=== PATIENT | female | born 1955 | race Caucasian/White ===

== ENCOUNTER 2017-03-30 14:47 | Outpatient (CLI) | payer BC, SELFPAY | END 2017-03-30 14:48 | disposition home or self-care (01) | LOC: BICRAD 14:47 | PROVIDERS: ATTEND Internal Medicine Rheumatology | DX: M25.531 Pain in right wrist (principal) ==

== ENCOUNTER 2018-08-03 15:11 | Outpatient (CLI) | payer BC ==
--- NOTE | 2018-08-03 15:33 | RAD ---
EXAM: LEFT HIP TWO VIEWS: 08/03/18 HISTORY: Bilateral hip pain for three weeks without known injury. 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 Stable nonaggressive bone lesion in the proximal f emoral subtrochanteric region, stable. IMPRESSION: Mild degenerative changes. Stable partially ossified bone lesion in the subtrochanteric region left f emur. POS: [facility]
--- NOTE | 2018-08-03 15:33 | RAD ---
RIGHT HIP 2 VIEWS: HISTORY: Bilateral hip pain for 3 weeks. FINDINGS AND IMPRESSION: Mild degenerative changes without fracture or dislocation or other acute process. POS: [facility]
== END 2018-08-03 15:12 | disposition home or self-care (01) ==
LOC: BICRAD 15:11
PROVIDERS: ATTEND Internal Medicine Rheumatology
DX: M25.551 Pain in right hip (principal); M25.552 Pain in left hip; M16.0 Bilateral primary osteoarthritis of hip; M89.9 Disorder of bone, unspecified

== ENCOUNTER 2019-03-10 13:57 | Outpatient (CLI) | payer BC ==
--- NOTE | 2019-03-10 14:44 | BD ---
EXAM: DEXA bone density examination HISTORY: Osteoporosis screening COMPARISON: None FINDINGS: L1--bone mineral density 0.851 g/sq cm; T score -1.3. Z score 0.2 L2--bone mineral density 0.857 g/sq cm; T score -1.6; Z score 0.1 L3--bone mineral density 0.794 g/sq cm; T score -2.6; Z score -0.9 L4--bone mineral density 0.898 g/sq cm; T score -1.5, Z score 0.3 Total L1-L4--bone mineral density 0.853 g/sq cm; T score -1.8, Z score -0.1 Right femoral neck--bone mineral density0.510; T score -3.1, Z score -1.6 Total proximal right femur--bone mineral density 0.621; T score -2.6, Z score -1.5 This patient has a 10 year WHO fracture risk of a major osteoporotic fracture of 17% and of a hip fra cture of 6.8%. IMPRESSION: Based on the WHO criteria, the patient's bone mineral density is consideredOsteoporotic. The patient is at high risk for fracture.
== END 2019-03-10 13:58 | disposition home or self-care (01) ==
LOC: BICMAMMO 13:57
PROVIDERS: ATTEND Internal Medicine Rheumatology
DX: M81.0 Age-related osteoporosis without current pathological fracture (principal)
CPT/HCPCS: 77080

== ENCOUNTER 2019-07-24 16:13 | Outpatient (CLI) | payer BC ==
--- NOTE | 2019-07-24 16:48 | RAD ---
Bilateral RIBS 3 views HISTORY: Injury. FINDINGS: Callus formation and periosteal reaction are associated with nondisplaced fractures involvi ng the lateral aspect of left ribs 4 and 5. No displaced rib fracture evident. No pneumothorax. Prominent calcification within the aorta. IMPRESSION : Healing left lateral fourth and fifth rib fractures. Atherosclerosis.
--- NOTE | 2019-07-24 17:53 | RAD ---
TWO VIEWS LUMBAR SPINE: Date: 07-24-2019 Provided Clinical History: Back pain. FINDINGS: Five non-rib bearing lumbar type vertebral bodies are present. There is left convexity curvature of t he lumbar spine. Sagittal lumbar alignment appears normal. Lumbar vertebral body heights appear prese rved. Partially visualized cardiac pacing device wires. Atherosclerosis. Lower lumbar spine facet art hritis. Pedicles appear intact. IMPRESSION: Scoliosis and facet degenerative change. POS: [facility]
--- NOTE | 2019-07-24 17:55 | RAD ---
THORACIC SPINE RADIOGRAPHS TWO VIEWS: Date: 07-24-2019 Provided Clinical History: Back pain. FINDINGS: Thoracic alignment appears normal. There is age indeterminate compression deformity involving T12. Th oracic vertebral body heights appear otherwise preserved. Thoracic disc degenerative changes are seen . Atherosclerosis, median sternotomy changes, and cardiac pacing device partially visualized. IMPRESSION: 1. Age indeterminate compression deformity involving T12. 2. Thoracic disc degenerative change. POS: [facility]
== END 2019-07-24 16:14 | disposition home or self-care (01) ==
LOC: SCSRAD 16:13
PROVIDERS: ATTEND Chiropractor
DX: S23.41XA Sprain of ribs, initial encounter (principal); M54.6 Pain in thoracic spine; M54.5 Low back pain; M51.34 Other intervertebral disc degeneration, thoracic region; M43.8X4 Other specified deforming dorsopathies, thoracic region; M41.9 Scoliosis, unspecified; M47.816 Spondylosis without myelopathy or radiculopathy, lumbar region; S22.42XD Multiple fractures of ribs, left side, subsequent encounter for fracture with routine healing
CPT/HCPCS: 71110; 72070; 72100

== ENCOUNTER 2019-09-01 09:42 | Outpatient (CLI) | payer BC ==
--- NOTE | 2019-09-01 13:37 | NM ---
NUCLEAR MEDICINE BONE SCAN WHOLE BODY: (Skeletal scintigraphy) DATE: 09/01/2019 HISTORY: 64-year-old female with persistent rib pain after cough in May 2019 TECHNIQUE: IV injection of technetium 99m-MDP: 31.7 mCi 3 hour delayed whole body skeletal scintigraphy in anterior and posterior views. FINDINGS: Small foci of increased uptake at far anterior aspects of left fifth and sixth ribs, posterior aspect of left upper rib, approximately sixth rib, and several foci of mildly increased uptake at the lateral aspect of left upper and mid rib cage. Numerous broad bands of increased uptake involving multiple lower thoracic and upper lumbar vertebral bodies, and L5 vertebral body. No asymmetrically increased uptake in long bones of upper and lower extremities or pelvic ring. IMPRESSION: Fractures of several left ribs, lower thoracic vertebral bodies, upper lumbar vertebral bodies, and l ower lumbar vertebral body.
== END 2019-09-01 09:43 | disposition home or self-care (01) ==
LOC: NM 09:42
PROVIDERS: ATTEND Nurse Practitioner Family
DX: S32.050A Wedge compression fracture of fifth lumbar vertebra, initial encounter for closed fracture (principal); S22.080A Wedge compression fracture of T11-T12 vertebra, initial encounter for closed fracture; S32.030A Wedge compression fracture of third lumbar vertebra, initial encounter for closed fracture; S32.010A Wedge compression fracture of first lumbar vertebra, initial encounter for closed fracture; S32.020A Wedge compression fracture of second lumbar vertebra, initial encounter for closed fracture; S22.42XA Multiple fractures of ribs, left side, initial encounter for closed fracture
CPT/HCPCS: 78306; A9503

== ENCOUNTER 2019-09-11 16:22 | Outpatient (CLI) | payer BC, OTHER ==
[2019-09-11 17:22] LABS: Mean Corpuscular HGB CONC 33.7 g/dL (32.0-36.0); Mean Corpuscular Hemoglobin 34.9 pg (27.0-31.0); Mean Platelet Volume 7.4 fL (7.4-10.4); Platelet Count 263 thou/uL (130-400); Red Blood Cell (RBC) Count 4.29 mill/uL (4.20-5.40); White Blood Cell (WBC) Count 5.4 thou/uL (4.8-10.8)
[2019-09-11 17:40] LABS: Anion Gap 14 mmol/L (10-20); BUN (Urea Nitrogen) 8 mg/dL (9.8-20.1); Calc. Creatinine Clearance 0 mL/min (70-130); Calcium 9.4 mg/dL (7.8-10.44); Carbon Dioxide 29 mmol/L (23-31); Chloride 91 mmol/L (98-107); Estimated GFR-MDRD 75; Glucose 89 mg/dL (80-115); Potassium 4.2 mmol/L (3.5-5.1); Sodium 130 mmol/L (136-145)
[2019-09-12 11:27] LABS: SARS-CoV-2 MS2 Positive; SARS-CoV-2 N Gene Negative; SARS-CoV-2 S Gene Negative; SARS-CoV-2 orf1ab Negative
--- NOTE | 2019-09-12 21:08 | EKG ---
Test Reason : Blood Pressure : / mmHG Vent. Rate : 091 BPM Atrial Rate : 091 BPM P-R Int : 138 ms QRS Dur : 100 ms QT Int : 382 ms P-R-T Axes : 101 110 082 degrees QTc Int : 469 ms Suspect arm lead reversal, interpretation assumes no reversal Normal sinus rhythm Right axis deviation Pulmonary disease pattern Incomplete right bundle branch block Abnormal ECG Confirmed by Iris KEITH ([id number]) on 09/12/2019 9:07:34 PM Referred By: GODWIN Confirmed By:Iris KEITH
== END 2019-09-11 16:23 | disposition home or self-care (01) ==
LOC: LABBT 16:22
PROVIDERS: ATTEND Anesthesiology Pain Medicine
DX: Z01.818 Encounter for other preprocedural examination (principal); Z11.59 Encounter for screening for other viral diseases; S32.050A Wedge compression fracture of fifth lumbar vertebra, initial encounter for closed fracture
CPT/HCPCS: 80048; 85027; 87635; 93005; 93010; U0003

== ENCOUNTER 2019-09-13 10:18 | Day surgery (SDC) | payer BC ==
[2019-09-11 16:48] VITALS: BMI 21.9
[2019-09-13] MEDS ORDERED: CEFAZOLIN 1 GM VIAL ONE (11:05)
[2019-09-13] MEDS ORDERED: Sodium Chloride 0.9% 100 ML ONE (11:05)
[2019-09-13] MEDS ORDERED: Lidocaine 1% w/Epinephrine 1:100K 20 ML VIAL ONE (12:12)
[2019-09-13] MEDS ORDERED: Bupivacaine PF 0.5% 30 ML VIAL ONE (12:12)
[2019-09-13] MEDS ORDERED: Midazolam HCl 2 mg/2 ml Vial ONE (12:19)
[2019-09-13] MEDS ORDERED: Fentanyl 100 MCG/2 ML VIAL ONE ×2 (12:19→14:08)
[2019-09-13] MEDS ORDERED: Ketamine 50 MG/ML (10ML VIAL) ONE (12:19)
[2019-09-13] MEDS ORDERED: Propofol 500 MG/50 ML VIAL ONE (12:19)
[2019-09-13] MEDS ORDERED: Iopamidol 20 ML ONE (12:49)
--- NOTE | 2019-09-13 14:18 | RAD ---
LUMBAR SPINE: 09/13/19 Total of 20 fluoroscopic images are presented from the OR. INDICATIONS: L5 kyphoplasty. FINDINGS/IMPRESSION: The fluoroscopic images obtained in the OR during procedure reveals instrumentation at the L5 vertebr a. Radiopaque material is injected which appears to extend outside the vertebral body. POS: [facility]
[2019-09-13] MEDS ORDERED: Morphine 2 MG/ML SYRINGE ONE (15:54)
[2019-09-13] MEDS ORDERED: Ondansetron PF 4 MG/2 ML Vial ONE (16:23)
--- NOTE | 2019-09-13 22:00 | OP ---
DATE OF PROCEDURE: 09/13/2019 PREOPERATIVE DIAGNOSIS: Wedge compression fracture, delayed healing, L5. POSTOPERATIVE DIAGNOSIS: Wedge compression fracture, delayed healing, L5. PROCEDURE: Kyphoplasty at L5. ANESTHESIA: TIVA. COMPLICATIONS: None. BLOOD LOSS: Less than 20 mL. DESCRIPTION OF PROCEDURE: Risks and benefits were discussed. Informed consent was obtained. She was taken to the OR, prepped and draped in standard fashion. A 1% lidocaine with 0.5% Marcaine with epinephrine was used for skin and subcutaneous anesthesia. The left pedicle was identified under fluoroscopic guidance. An 11-gauge trocar needle was advanced easily into the left pedicle using AP, lateral, and oblique views to ensure proper placement. The right pedicle was very poorly visualized and most importantly, after multiple attempts to image the medial wall of the right pedicle that was not successful. Therefore, the procedure was changed to unipedicular approach. A curved needle was then placed through this single pedicle to cross the midline and also to make the catheter placement for the curved balloon. The sheath was withdrawn. Curved balloon was placed and inflated. The curved needle was then replaced and cement was mixed in the standard fashion and injected. At 1 mL of cement injected, there was spread of cement at the inferior endplate anteriorly. The needle was withdrawn slightly and further injection revealed a total of 3 mL injected. At this point, contrast was noted approaching the posterior wall of vertebra and bilateral spread especially across the inferior and superior endplates and the procedure was terminated. There were no complications. She tolerated it well and was taken to the recovery room in good condition. Job ID: [id number]
== END 2019-09-13 16:45 | disposition home or self-care (01) ==
LOC: SDC 10:18
PROVIDERS: ATTEND Anesthesiology Pain Medicine
PROC: 0QB03ZX Excision of Lumbar Vertebra, Percutaneous Approach, Diagnostic (ICD-10-PCS; principal; 2019-09-13)
PROC: 0QS03ZZ Reposition Lumbar Vertebra, Percutaneous Approach (ICD-10-PCS; principal; 2019-09-13)
PROC: 0QU03JZ Supplement Lumbar Vertebra with Synthetic Substitute, Percutaneous Approach (ICD-10-PCS; principal; 2019-09-13)
DX: S32.050A Wedge compression fracture of fifth lumbar vertebra, initial encounter for closed fracture (principal); S22.080A Wedge compression fracture of T11-T12 vertebra, initial encounter for closed fracture; E11.9 Type 2 diabetes mellitus without complications; M19.90 Unspecified osteoarthritis, unspecified site; I42.0 Dilated cardiomyopathy; M81.0 Age-related osteoporosis without current pathological fracture; Z79.4 Long term (current) use of insulin; Z79.899 Other long term (current) drug therapy; Z95.1 Presence of aortocoronary bypass graft; Z95.810 Presence of automatic (implantable) cardiac defibrillator; Z90.49 Acquired absence of other specified parts of digestive tract; Z98.84 Bariatric surgery status; X58.XXXA Exposure to other specified factors, initial encounter
CPT/HCPCS: 36416; 72110; 76000; 88307; 88311; J0690; J2250; J2270; J2405; J2704; J3010; J3490; Q9966; S0020

== ENCOUNTER 2019-12-28 09:25 | Outpatient (CLI) | payer BC ==
--- NOTE | 2019-12-28 14:00 | NM ---
NUCLEAR MEDICINE BONE SCAN WHOLE BODY: (Skeletal scintigraphy) DATE: 12/28/2019 HISTORY: 64-year-old female with compression fractures of thoracic spine and lumbar spine COMPARISON: 09/01/2019 TECHNIQUE: IV injection of technetium 99m-MDP: 30 mCi 3 hour delayed whole body skeletal scintigraphy in anterior and posterior views. FINDINGS: Again noted are the multiple foci of increased uptake involving several levels at the lower thoracic spine and upper lumbar spine, consistent with nonacute compression fractures. The degree of uptake has slightly decreased now compared to the previous study. Again noted is the increased uptake at the posterior elements of lower lumbar spine consistent with f acet DJD. The increased uptake involving the L5 vertebral body has diminished now. The increased uptake involving left lateral and lower anterior ribs has also decreased. Single focus of increased uptake in one of the right posterior upper ribs, has also decreased in inte nsity. There is a new prominent focus of increased uptake in the right parietal or occipital calvarium. No other new foci of increased uptake. IMPRESSION: 1) new prominent single focus of increased uptake in the right posterior skull. Recommend further antoinette luation beginning with noncontrast CT of the brain. 2) multiple osteoporotic compression fractures of lower thoracic spine and lumbar spine, with mild in terval decrease in the intensity of uptake since prior study. 3) interval decrease in intensity of uptake involving nonacute rib fractures.
== END 2019-12-28 09:26 | disposition home or self-care (01) ==
LOC: NM 09:25
PROVIDERS: ATTEND Anesthesiology Pain Medicine
DX: S22.009A Unspecified fracture of unspecified thoracic vertebra, initial encounter for closed fracture (principal); S22.39XA Fracture of one rib, unspecified side, initial encounter for closed fracture
CPT/HCPCS: 78306; A9503

== ENCOUNTER 2020-01-12 15:56 | Outpatient (CLI) | payer BC ==
--- NOTE | 2020-01-12 17:11 | CT ---
CT HEAD WITHOUT IV CONTRAST COMPARISON: Bone scan on 07/14/2019 HISTORY: Abnormal focus of uptake radiotracer seen within the left parietal bone on prior bone scan. TECHNIQUE: Axial CT imaging at 5 mm intervals from vertex through skull base without contrast FINDINGS: There is no evidence of an acute infarction, hemorrhage, mass effect, or midline shift. There is mild cerebral volume loss. The ventricular system is normal in size, shape, and position for the degree of sulcal atrophy. Mucosal thickening is seen in a few right ethmoidal air cells. Mastoid air cells are clear. Osseous structures appear intact.There is no lytic or sclerotic lesion seen within the left parietal bone to correspond to the area of intense abnormal uptake of radiotracer on the prior bone scan. Exact etiology for finding on bone scan is uncertain. There is a area of lucency seen in the midline of the frontal bone which is noted to be within the diploic space. No abnormal uptake was seen in this region on the bone scan. May represent prominent arachnoid granulation. This has a overall nonag gressive appearance. IMPRESSION: 1. No acute intracranial abnormality demonstrated. 2. No sclerotic or lytic lesion or evidence of a fracture is seen in the left parietal bone to corres pond to the abnormality seen on bone scan. Exact etiology for the area of abnormal uptake is uncertain. MRI brain versus follow-up bone scan is suggested for further evaluation given that a ale esponding abnormality is not seen on CT exam.
== END 2020-01-12 15:57 | disposition home or self-care (01) ==
LOC: BICCT 15:56
PROVIDERS: ATTEND Anesthesiology Pain Medicine
DX: M89.9 Disorder of bone, unspecified (principal)
CPT/HCPCS: 70450

== ENCOUNTER 2020-03-06 12:52 | Outpatient (CLI) | payer BC ==
[2020-03-06 13:23] LABS: Estimated GFR-MDRD - POC Greater than 90
--- NOTE | 2020-03-06 14:15 | CT ---
CTA ABDOMEN AND PELVIS WITH BILATERAL LOWER EXTREMITY RUNOFF: INDICATIONS: 65-year-old female with discoloration of the left great toe and peripheral vascular disease TECHNIQUE: Multiple CTA images were obtained of the abdomen and pelvis with bilateral lower extremity runoff uti lizing IV contrast and 3D reformatted imaging. Axial, coronal and sagittal reformatted images were constructed from the raw data. COMPARISON: Prior CT of the thoracic spine and lumbar spine dated August 25, [address] the abdomen an d pelvis with and without contrast dated July 16, 2008 FINDINGS: ABDOMEN: Lung bases: Clear Liver: Diffuse fatty liver Gallbladder: Cholelithiasis Pancreas: Normal. Adrenal glands: Slight hypertrophy of both adrenal glands. There are also small bilateral adrenal bonilla nomas that appears similar. Spleen: Normal. Kidneys and ureters: Normal. No hydronephrosis. Lymph nodes:No lymphadenopathy. Free fluid in abdomen:No free fluid is evident. PELVIS: Small and large bowel: Postsurgical change of a gastric bypass. Small and large bowel that are unopac ified reveal no definite acute abnormality Appendix:Normal Bladder: Partially decompressed Rectal and perirectal soft tissues:Normal. Reproductive structures: Not well seen. Free fluid in pelvis: No free fluid is evident. Lymphadenopathy pelvis: No lymphadenopathy is evident. Osseous structures: There is been interval mild superior endplate compression fracture of L3. Mild co mpression abnormalities of L5, L4, L2, L1, T12 and T11 are similar to the comparison examination dated August 25, 2019. There is diffuse osteopenia. There is scattered degenerative and osteoarthritic c hanges. There is vertebroplasty change at L5. There is a low-grade chondroid lesion within the proximal left femur. Soft tissues:Normal. VASCULATURE: Aorta: There is severe atherosclerotic irregularity of the abdominal aorta without evidence of stenos is, occlusion or aneurysmal formation. Celiac:Moderate narrowing involving the origin SMA:Severe narrowing involving the origin Renal arteries:The right renal artery is duplicated. The small superior right renal artery appears pa tent. The larger main right renal artery demonstrates severe narrowing along its proximal segment. The left main renal artery demonstrates moderate narrowing along its proximal segment. SLOAN:Moderate narrowing at its origin. Right common iliac artery: Moderate to severe narrowing near its origin and proximal segment. Right external iliac artery: Normal in caliber without evidence of stenosis or occlusion. Right internal iliac artery: There is moderate to severe narrowing involving the origin and proximal segment of the right internal iliac Left common iliac artery: There is complete occlusion from its origin through the level of the left e xternal iliac artery. There is reconstituted flow in the left internal iliac artery. Left external iliac artery: There is moderate to severe narrowing involving the proximal left externa l iliac artery.. Left internal iliac artery: Reconstitution of flow likely through pelvic collaterals. Is occluded at its proximal segment. Right common femoral artery: Moderate narrowing Right deep femoral artery: Normal in caliber without evidence of stenosis or occlusion. Right superficial femoral artery: Mild irregularity and narrowing. Right popliteal artery: Normal in caliber without evidence of stenosis or occlusion. Right posterior tibial artery: Normal in caliber without evidence of stenosis or occlusion. Right anterior tibial artery: Normal in caliber without evidence of stenosis or occlusion. Right peroneal artery: Normal in caliber without evidence of stenosis or occlusion. Left common femoral artery: There is moderate 50% luminal caliber narrowing Left deep femoral artery: Normal in caliber without evidence of stenosis or occlusion. Left superficial femoral artery: There is moderate atherosclerotic irregularity involving the distal left superficial femoral artery Left popliteal artery: Normal in caliber without evidence of stenosis or occlusion. Left posterior tibial artery: Normal in caliber without evidence of stenosis or occlusion. Left anterior tibial artery: Normal in caliber without evidence of stenosis or occlusion. Left peroneal artery: Normal in caliber without evidence of stenosis or occlusion. Additional findings: Small low-grade chondroid lesion seen within the proximal left femur. IMPRESSION: 1. Complete occlusion of the left common iliac artery with reconstitution of the level of the left ex ternal iliac artery. There is moderate to severe narrowing involving the proximal left external iliac artery. There is moderate 50% luminal caliber narrowing involving the left common femoral arter y. There is moderate atherosclerotic irregularity of the left superficial femoral artery distally. 2. Moderate to severe narrowing involving the origin of the right common iliac artery. There is moder ate, 50% luminal caliber narrowing, involving the right common femoral artery. 3. Severe narrowing involving the origin of the SMA. Moderate narrowing involving the origin of the c eliac. Severe narrowing involving the origin of the right main renal artery. 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 Moderate narrowing involving the proximal segmen t of the left main renal artery. Moderate narrowing involving the origin of the SLOAN. 4. New superior endplate compression fracture of L3. Stable chronic compression fractures of L5, L4, L2, L1, T12 and T11 with intervertebral plasty change at L5. 5. Fatty liver, cholelithiasis, small bilateral adrenal adenomas with mild adrenal hypertrophy and lo w-grade chondroid lesion of the proximal left femur
== END 2020-03-06 12:53 | disposition home or self-care (01) ==
LOC: BICCT 12:52
PROVIDERS: ATTEND Thoracic Surgery (Cardiothoracic Vascular Surgery)
DX: I70.213 Atherosclerosis of native arteries of extremities with intermittent claudication, bilateral legs (principal); I77.1 Stricture of artery; I70.202 Unspecified atherosclerosis of native arteries of extremities, left leg; S32.039A Unspecified fracture of third lumbar vertebra, initial encounter for closed fracture
CPT/HCPCS: 75635; 82565

== ENCOUNTER 2020-06-27 09:40 | Outpatient (CLI) | payer BC ==
[2020-06-27] MEDS ORDERED: Iopamidol 370 76% 50 ML VIAL FS ONE (13:13)
[2020-06-27] MEDS ORDERED: Iopamidol 370 76% 100 ML VIAL ONE (13:13)
== END 2020-06-27 09:41 | disposition home or self-care (01) ==
LOC: CT 09:40
PROVIDERS: ATTEND Internal Medicine Hematology & Oncology
DX: C41.0 Malignant neoplasm of bones of skull and face (principal); K80.20 Calculus of gallbladder without cholecystitis without obstruction; R59.0 Localized enlarged lymph nodes; E27.8 Other specified disorders of adrenal gland
CPT/HCPCS: 70450; 71260; 74177; Q9967

== ENCOUNTER 2020-06-28 13:15 | Inpatient (IN) | payer BC ==
[2020-07-02 09:55] VITALS: BMI 20.5
[2020-07-03 08:06] LABS: Sodium 129 mmol/L (136-145)
[2020-07-03] MEDS ORDERED: Lidocaine 0.5%/Epinephrine 1:200,000 50 ml Vial ONE (08:08)
[2020-07-03] MEDS ORDERED: Albuterol Sulfate 2.5 mg/3 ml Neb NEB SCH (08:15)
[2020-07-03] MEDS ORDERED: Albuterol Sulfate 2.5 mg/3 ml Neb ONE (08:16)
[2020-07-03] MEDS ORDERED: Ketamine 50 MG/ML (10ML VIAL) ONE (08:37)
[2020-07-03] MEDS ORDERED: Fentanyl 100 MCG/2 ML VIAL ONE (08:37)
[2020-07-03] MEDS ORDERED: Ketorolac Tromethamine 30 MG/ML VIAL ONE (09:29)
[2020-07-03] MEDS ORDERED: PROPOFOL 200 MG/20 ML VIAL ONE (09:29)
[2020-07-03] MEDS ORDERED: Lidocaine 1% PF 5 ML VIAL ONE (09:29)
[2020-07-03] MEDS ORDERED: Bacitracin Zinc Ointment 30 gm TUBE ONE (09:29)
[2020-07-03] MEDS ORDERED: Albuterol Sulfate HFA (OR ONLY) ONE (09:29)
[2020-07-03] MEDS ORDERED: Rocuronium Bromide 10 MG/ML (10ML VIAL) ONE (09:29)
[2020-07-03] MEDS ORDERED: PHENYLEPHRINE-NS 100 MCG/ML 10 ML SYRINGE ONE (09:29)
[2020-07-03] MEDS ORDERED: Ondansetron PF 4 MG/2 ML Vial ONE (09:29)
[2020-07-03] MEDS ORDERED: Dexamethasone 20 MG/5 ML VIAL ONE (09:29)
[2020-07-03] MEDS ORDERED: SUGAMMADEX SODIUM 200 MG/2 ML VIAL ONE (09:34)
== END 2020-07-03 13:28 | disposition home or self-care (01) | DRG 479 ==
LOC: SURG A 07-03 07:06
PROVIDERS: ADMIT Neurological Surgery; ATTEND Neurological Surgery
PROC: 0NB Head and Facial Bones, Excision (ICD-10-PCS; principal; 2020-07-03)
DX: M89.9 Disorder of bone, unspecified (principal); E78.00 Pure hypercholesterolemia, unspecified; F32.9 Major depressive disorder, single episode, unspecified; E11.9 Type 2 diabetes mellitus without complications; M19.90 Unspecified osteoarthritis, unspecified site; I10 Essential (primary) hypertension; Z95.1 Presence of aortocoronary bypass graft; Z98.84 Bariatric surgery status; Z90.49 Acquired absence of other specified parts of digestive tract
CPT/HCPCS: 36415; 36416; 84295; 88307; 88341; 88342; 88360; 94640; J0690; J1100; J1885; J2001; J2405; J2704; J3010; J7611

== ENCOUNTER 2020-06-28 13:27 | Outpatient (CLI) | payer BC ==
[2020-06-28 16:48] LABS: Hemoglobin 14.7 g/dL (12.0-15.5); Mean Corpuscular HGB CONC 34.5 g/dL (32.0-36.0); Mean Corpuscular Hemoglobin 34.4 pg (27.0-33.0); Mean Corpuscular Volume 99.8 fl (81.6-98.3); Platelet Count 235 10x3/uL (150-450); RBC Distribution Width 12.9 % (11.5-14.5); Red Blood Cell (RBC) Count 4.27 10x6/uL (3.90-5.03); White Blood Cell (WBC) Count 4.4 10x3/uL (3.5-10.5)
[2020-06-28 17:17] LABS: Anion Gap 14 mmol/L (10-20); BUN (Urea Nitrogen) 4 mg/dL (9.8-20.1); Calc. Creatinine Clearance 0 mL/min (70-130); Calcium 9.5 mg/dL (7.8-10.44); Carbon Dioxide 30 mmol/L (23-31); Chloride 90 mmol/L (98-107); Glucose 94 mg/dL (80-115); Potassium 4.9 mmol/L (3.5-5.1); Sodium 129 mmol/L (136-145)
[2020-06-29 02:22] LABS: SARS-CoV-2 PCR by NAA Not Detected (NotDetected)
== END 2020-06-28 13:28 | disposition home or self-care (01) ==
LOC: LABBT 13:27
PROVIDERS: ATTEND Neurological Surgery
DX: Z01.818 Encounter for other preprocedural examination (principal); Z01.812 Encounter for preprocedural laboratory examination; M89.9 Disorder of bone, unspecified; Z20.822 Contact with and (suspected) exposure to COVID-19
CPT/HCPCS: 80048; 85027; 87635; 93005; 93010; U0003; U0005

== ENCOUNTER 2020-07-09 12:58 | Outpatient (CLI) | payer BC ==
[2020-07-09 14:36] LABS: #Monocytes 0.7 10x3/uL (0.0-1.1); #Neutrophils 2.7 10x3/uL (1.5-8.4); %Basophils 0.7 % (0.0-2.0); %Eosinophils 0.9 % (0.0-6.0); %Lymphocytes 20.5 % (18.0-47.0); %Monocytes 15.3 % (0.0-10.0); %Neutrophils 62.4 % (40.0-75.0); Hemoglobin 14.6 g/dL (12.0-15.5); Mean Corpuscular HGB CONC 34.8 g/dL (32.0-36.0); Mean Corpuscular Hemoglobin 34.8 pg (27.0-33.0); Mean Platelet Volume 9.5 fl (7.4-10.4); Platelet Count 251 10x3/uL (150-450); White Blood Cell (WBC) Count 4.3 10x3/uL (3.5-10.5)
[2020-07-09 14:53] LABS: ALT (SGPT) 26 U/L (8-55); AST (SGOT) 49 U/L (5-34); Alkaline Phosphatase 221 U/L (40-110); Anion Gap 13 mmol/L (10-20); BUN (Urea Nitrogen) 6 mg/dL (9.8-20.1); Calc. Creatinine Clearance 0 mL/min (70-130); Calcium 9.5 mg/dL (7.8-10.44); Carbon Dioxide 32 mmol/L (23-31); Chloride 89 mmol/L (98-107); Globulin 2.4 g/dL (2.4-3.5); Glucose 118 mg/dL (80-115); Potassium 4.6 mmol/L (3.5-5.1); Protein, Total 6.4 g/dL (5.8-8.1); Sodium 129 mmol/L (136-145)
[2020-07-10 01:44] LABS: SARS-CoV-2 PCR by NAA Not Detected (NotDetected)
== END 2020-07-09 12:59 | disposition home or self-care (01) ==
LOC: LABBT 12:58
PROVIDERS: ATTEND Surgery
DX: Z01.818 Encounter for other preprocedural examination (principal); C7A.8 Other malignant neuroendocrine tumors; Z20.822 Contact with and (suspected) exposure to COVID-19
CPT/HCPCS: 80053; 85025; 87635; 93005; 93010; U0003; U0005

== ENCOUNTER 2020-07-12 07:57 | Day surgery (SDC) | payer BC ==
[2020-07-11 08:50] VITALS: BMI 20.9
[2020-07-12] MEDS ORDERED: Famotidine/PF 20 mg/2ml Vial ONE (10:25)
[2020-07-12] MEDS ORDERED: Fentanyl 100 MCG/2 ML VIAL ONE (10:25)
[2020-07-12] MEDS ORDERED: Midazolam HCl 2 mg/2 ml Vial ONE (10:25)
[2020-07-12] MEDS ORDERED: Ketamine 50 MG/ML (10ML VIAL) ONE (10:25)
[2020-07-12] MEDS ORDERED: Bupivacaine 0.25% HCL 30 ML VIAL ONE (10:27)
[2020-07-12] MEDS ORDERED: XYLOCAINE 2%-EPI 1:100,000 20 ML VIAL ONE (10:27)
[2020-07-12] MEDS ORDERED: Ondansetron PF 4 MG/2 ML Vial ONE (10:39)
[2020-07-12] MEDS ORDERED: PROPOFOL 200 MG/20 ML VIAL ONE (10:39)
[2020-07-12] MEDS ORDERED: Glycopyrrolate 0.2 MG/ML 5 ML SYRINGE ONE (10:39)
[2020-07-12] MEDS ORDERED: Metoprolol Tartrate 5 MG/5 ML VIAL ONE (10:39)
[2020-07-12] MEDS ORDERED: hydrALAZINE 20 MG/ML VIAL SLOW IVP PRN (11:27)
[2020-07-12] MEDS ORDERED: Ondansetron HCl/PF 4 MG/2 ML Vial IVP PRN (11:27)
[2020-07-12] MEDS ORDERED: hydrALAZINE 20 MG/ML VIAL ONE (11:31)
== END 2020-07-12 14:35 | disposition home or self-care (01) ==
LOC: SDC 07:57
PROVIDERS: ATTEND Surgery
PROC: 02HV33Z Insertion of Infusion Device into Superior Vena Cava, Percutaneous Approach (ICD-10-PCS; principal; 2020-07-12)
PROC: 0JH60WZ Insertion of Totally Implantable Vascular Access Device into Chest Subcutaneous Tissue and Fascia, Open Approach (ICD-10-PCS; principal; 2020-07-12)
DX: C7A.8 Other malignant neuroendocrine tumors (principal); E11.9 Type 2 diabetes mellitus without complications; I42.0 Dilated cardiomyopathy; F17.210 Nicotine dependence, cigarettes, uncomplicated; Z79.4 Long term (current) use of insulin; Z79.899 Other long term (current) drug therapy; Z95.1 Presence of aortocoronary bypass graft; Z95.810 Presence of automatic (implantable) cardiac defibrillator
CPT/HCPCS: 71045; C1788; J0360; J0690; J1642; J2250; J2405; J2704; J3010; S0020; S0028

== ENCOUNTER 2020-07-18 11:02 | Outpatient (CLI) | payer BC | END 2020-07-18 11:03 | disposition home or self-care (01) | LOC: PET 11:02 | PROVIDERS: ATTEND Internal Medicine Hematology & Oncology | DX: C34.90 Malignant neoplasm of unspecified part of unspecified bronchus or lung (principal); C79.51 Secondary malignant neoplasm of bone | CPT/HCPCS: 78815; A9552 ==

== ENCOUNTER 2020-08-29 10:45 | Inpatient (IN) | payer BC ==
[2020-08-29] MEDS ORDERED: Fentanyl 100 MCG/2 ML VIAL ONE ×4 (11:12→15:24)
[2020-08-29] MEDS ORDERED: Ondansetron PF 4 MG/2 ML Vial ONE ×2 (11:20→15:44)
[2020-08-29] MEDS ORDERED: Dextrose 50% Abboject 50 ML SYRINGE SLOW IVP PRN (12:39)
[2020-08-29] MEDS ORDERED: hydrALAZINE 20 MG/ML VIAL SLOW IVP PRN (12:39)
[2020-08-29] MEDS ORDERED: Morphine 2 MG/ML VIAL SLOW IVP PRN (12:39)
[2020-08-29] MEDS ORDERED: Dextrose 5% in Water 1,000 ML IV PRN (12:39)
[2020-08-29] MEDS ORDERED: CEFAZOLIN 2 GM in Premix Bag 1 BAG IVPB SCH (12:45)
[2020-08-29 13:59] LABS: SARS-CoV-2 NAA Rapid Test Not Detected (NotDetected)
[2020-08-29 14:04] LABS: Hemoglobin 8.2 g/dL (12.0-16.0); Mean Corpuscular HGB CONC 34.6 g/dL (32.0-36.0); Mean Corpuscular Hemoglobin 36.5 pg (27.0-31.0); Mean Platelet Volume 7.5 fL (7.4-10.4); Platelet Count 243 thou/uL (130-400); RBC Distribution Width 15.8 % (11.5-14.5); Red Blood Cell (RBC) Count 2.26 mill/uL (4.20-5.40); White Blood Cell (WBC) Count 27.8 thou/uL (4.8-10.8)
[2020-08-29 14:19] LABS: Magnesium 1.6 mg/dL (1.6-2.6); Phosphorus 3.7 mg/dL (2.3-4.7)
[2020-08-29 14:24] LABS: ALT (SGPT) 15 U/L (8-55); AST (SGOT) 30 U/L (5-34); Albumin 3.4 g/dL (3.4-4.8); Alkaline Phosphatase 161 U/L (40-110); Anion Gap 14 mmol/L (10-20); Anisocytosis SLIGHT = 6-15 cells (100X) (0-5/hpf); BUN (Urea Nitrogen) 8 mg/dL (9.8-20.1); Band 42 % (5-11); Bilirubin, Total 1.1 mg/dL (0.2-1.2); Calc. Creatinine Clearance 0 mL/min (70-130); Calcium 8.8 mg/dL (7.8-10.44); Carbon Dioxide 25 mmol/L (23-31); Chloride 82 mmol/L (98-107); Globulin 2.7 g/dL (2.4-3.5); Glucose 138 mg/dL (80-115); Lymphocytes 2 % (21-51); MDiff Complete? YES; Macrocytosis SLIGHT = 6-15 cells (100X) (0-5/hpf); Monocytes 5 % (0-10); Neutrophil 51 % (42-75); Potassium 5.1 mmol/L (3.5-5.1); Protein, Total 6.1 g/dL (5.8-8.1); Reflex for Review?? YES; Sodium 116 mmol/L (136-145)
[2020-08-29] MEDS ORDERED: Sodium Chloride 0.9% 10 ML ONE ×2 (15:05→15:43)
[2020-08-29] MEDS ORDERED: Sodium Chloride 0.9% 20 ML ONE (15:26)
[2020-08-29] MEDS ORDERED: Bupivacaine HCl 0.5%/Epinephrine 1:200,000/PF 30 ml Vial ONE (15:40)
[2020-08-29] MEDS ORDERED: Carvedilol 6.25 MG TAB ONE (16:41)
[2020-08-29] MEDS ORDERED: Lisinopril 10 MG TAB ONE (16:42)
[2020-08-29] MEDS ORDERED: Lisinopril 20 MG TAB PO SCH (16:45)
[2020-08-29] MEDS ORDERED: Carvedilol 6.25 MG TAB PO SCH (17:00)
[2020-08-29] MEDS: traMADol HCl 50 MG TAB PO SCH ×3 (18:25→23:37)
[2020-08-29] MEDS: Sodium Chloride 0.9% 1,000 ML IV SCH ×3 (18:25→23:31)
[2020-08-29] MEDS: Acetaminophen 325 MG TAB PO SCH ×2 (18:49→23:32)
[2020-08-29] MEDS: Ketorolac Tromethamine 30 MG/ML VIAL IVP SCH ×2 (18:49→23:33)
[2020-08-29] MEDS: Ferrous Sulfate 325 MG TAB PO SCH (18:50)
[2020-08-29] MEDS: Famotidine 20 MG TAB PO SCH (20:30)
[2020-08-29] MEDS: Ascorbic Acid 500 mg Chewable Tablet PO SCH (20:30)
[2020-08-29] MEDS: Senokot S 8.6-50 MG TAB PO SCH (20:30)
[2020-08-29] MEDS ORDERED: Sodium Chloride 1 GM TAB PO SCH (21:00)
[2020-08-29 22:16] LABS: Anion Gap 10 mmol/L (10-20); BUN (Urea Nitrogen) 10 mg/dL (9.8-20.1); Calc. Creatinine Clearance 0 mL/min (70-130); Calcium 8.4 mg/dL (7.8-10.44); Carbon Dioxide 29 mmol/L (23-31); Chloride 82 mmol/L (98-107); Glucose 166 mg/dL (80-115); Potassium 4.8 mmol/L (3.5-5.1)
[2020-08-29 22:20] LABS: Sodium 116 mmol/L (136-145)
[2020-08-29] MEDS ORDERED: Sodium Chloride 0.9% 500 ML IV SCH (23:00)
[2020-08-29] MEDS ORDERED: Sodium Phosphate 30 MMOL in Sodium Chloride 0.9% 250 ML 250 ML IVPB SCH (23:15)
[2020-08-30 01:14] VITALS: BMI 22.8
[2020-08-30] MEDS: Acetaminophen 325 MG TAB PO SCH ×4 (05:12→23:50)
[2020-08-30] MEDS: Ketorolac Tromethamine 30 MG/ML VIAL IVP SCH ×4 (05:12→23:50)
[2020-08-30] MEDS: traMADol HCl 50 MG TAB PO SCH ×4 (05:13→23:51)
[2020-08-30 06:31] LABS: #Lymphocytes 0.8 thou/uL (1.20-3.40); #Monocytes 0.7 thou/uL (0.11-0.59); #Neutrophils 10.7 thou/uL (1.40-6.50); %Basophils 0.1 % (0.0-1.0); %Eosinophils 0.4 % (0.0-10.0); %Lymphocytes 6.2 % (21.0-51.0); %Monocytes 5.8 % (0.0-10.0); %Neutrophils 87.6 % (42.0-75.0); Hemoglobin 6.6 g/dL (12.0-16.0); Mean Corpuscular HGB CONC 33.7 g/dL (32.0-36.0); Mean Corpuscular Hemoglobin 36.1 pg (27.0-31.0); Mean Platelet Volume 6.9 fL (7.4-10.4); Platelet Count 174 thou/uL (130-400); RBC Distribution Width 16.1 % (11.5-14.5); Red Blood Cell (RBC) Count 1.84 mill/uL (4.20-5.40); White Blood Cell (WBC) Count 12.2 thou/uL (4.8-10.8)
[2020-08-30 06:32] LABS: INR-International Normal Ratio 1.1; PTT 30.7 sec (22.9-36.1); Prothrombin Time 14.3 sec (12.0-14.7)
[2020-08-30 06:44] LABS: Anion Gap 12 mmol/L (10-20); BUN (Urea Nitrogen) 12 mg/dL (9.8-20.1); Calc. Creatinine Clearance 78 mL/min (70-130); Carbon Dioxide 26 mmol/L (23-31); Chloride 86 mmol/L (98-107); Glucose 142 mg/dL (80-115); Magnesium 2.6 mg/dL (1.6-2.6); Phosphorus 6.8 mg/dL (2.3-4.7); Potassium 4.5 mmol/L (3.5-5.1); Sodium 119 mmol/L (136-145)
[2020-08-30] MEDS: Ferrous Sulfate 325 MG TAB PO SCH ×2 (07:18→17:26)
[2020-08-30] MEDS: Polyethylene Glycol 3350 17 GM Packet PO SCH (07:21)
[2020-08-30] MEDS: Sodium Chloride 1 GM TAB PO SCH ×2 (08:11→16:17)
[2020-08-30] MEDS: Famotidine 20 MG TAB PO SCH ×2 (08:11→20:20)
[2020-08-30] MEDS: Lisinopril 20 MG TAB PO SCH (08:12)
[2020-08-30] MEDS: Ascorbic Acid 500 mg Chewable Tablet PO SCH ×2 (08:12→20:20)
[2020-08-30] MEDS: Senokot S 8.6-50 MG TAB PO SCH ×2 (08:15→20:19)
[2020-08-30] MEDS: Sodium Chloride 0.9% 1,000 ML IV SCH (08:30)
[2020-08-30] MEDS ORDERED: Sodium Chloride 3% 500 ML IVPB SCH (09:00)
[2020-08-30] MEDS ORDERED: Carvedilol 6.25 MG TAB PO SCH (09:00)
[2020-08-30 13:26] LABS: Anion Gap 11 mmol/L (10-20); BUN (Urea Nitrogen) 11 mg/dL (9.8-20.1); Calc. Creatinine Clearance 73 mL/min (70-130); Carbon Dioxide 25 mmol/L (23-31); Chloride 88 mmol/L (98-107); Glucose 167 mg/dL (80-115); Potassium 4.7 mmol/L (3.5-5.1)
[2020-08-30 13:49] LABS: Sodium 119 mmol/L (136-145)
[2020-08-30] MEDS ORDERED: Meclizine HCl 25 MG TAB PO PRN (14:23)
[2020-08-30] MEDS ORDERED: ALPRAZolam 0.25 MG TAB PO PRN (14:23)
[2020-08-30] MEDS ORDERED: Prochlorperazine Maleate 5 MG TAB PO PRN (15:00)
[2020-08-30] MEDS ORDERED: Albuterol Sulfate 2.5 mg/3 ml Neb NEB PRN (15:01)
[2020-08-30] MEDS: Ondansetron PF 4 MG/2 ML Vial IVP PRN (16:17)
[2020-08-30 16:49] LABS: Glucose 136 mg/dL (80-115)
[2020-08-30] MEDS: Carvedilol 6.25 MG TAB PO SCH (20:21)
[2020-08-31] MEDS: Sodium Chloride 1 GM TAB PO SCH ×3 (01:18→17:39)
[2020-08-31] MEDS: Ondansetron PF 4 MG/2 ML Vial IVP PRN ×2 (01:18→18:54)
[2020-08-31 05:28] LABS: #Monocytes 0.5 thou/uL (0.11-0.59); %Basophils 0.1 % (0.0-1.0); %Eosinophils 0.3 % (0.0-10.0); %Lymphocytes 8.5 % (21.0-51.0); %Monocytes 4.3 % (0.0-10.0); %Neutrophils 86.8 % (42.0-75.0); Hemoglobin 7.1 g/dL (12.0-16.0); Mean Corpuscular Hemoglobin 36.1 pg (27.0-31.0); Mean Platelet Volume 7.3 fL (7.4-10.4); Platelet Count 169 thou/uL (130-400); RBC Distribution Width 17.4 % (11.5-14.5); Red Blood Cell (RBC) Count 1.96 mill/uL (4.20-5.40); White Blood Cell (WBC) Count 11.5 thou/uL (4.8-10.8)
[2020-08-31 05:55] LABS: Anion Gap 9 mmol/L (10-20); BUN (Urea Nitrogen) 9 mg/dL (9.8-20.1); Calc. Creatinine Clearance 81 mL/min (70-130); Calcium 7.9 mg/dL (7.8-10.44); Carbon Dioxide 26 mmol/L (23-31); Chloride 91 mmol/L (98-107); Glucose 132 mg/dL (80-115); Phosphorus 3.4 mg/dL (2.3-4.7); Potassium 4.3 mmol/L (3.5-5.1); Sodium 122 mmol/L (136-145)
[2020-08-31] MEDS: Ketorolac Tromethamine 30 MG/ML VIAL IVP SCH ×3 (05:59→17:41)
[2020-08-31] MEDS: traMADol HCl 50 MG TAB PO SCH ×3 (06:00→18:54)
[2020-08-31] MEDS: Acetaminophen 325 MG TAB PO SCH ×3 (06:00→17:40)
[2020-08-31] MEDS ORDERED: Sodium Chloride 3% 500 ML IVPB SCH (07:30)
[2020-08-31] MEDS ORDERED: Ondansetron PF 4 MG/2 ML Vial ONE ×2 (07:40→08:30)
[2020-08-31] MEDS ORDERED: Famotidine/PF 20 mg/2ml Vial ONE (08:24)
[2020-08-31] MEDS ORDERED: PHENYLEPHRINE-NS 100 MCG/ML 10 ML SYRINGE ONE (08:30)
[2020-08-31] MEDS ORDERED: Glycopyrrolate 0.2 MG/ML 5 ML SYRINGE ONE (08:30)
[2020-08-31] MEDS ORDERED: Rocuronium Bromide 10 MG/ML (10ML VIAL) ONE (08:30)
[2020-08-31] MEDS ORDERED: Albuterol Sulfate HFA (OR ONLY) ONE (08:30)
[2020-08-31] MEDS ORDERED: Metoprolol Tartrate 5 MG/5 ML VIAL ONE (08:30)
[2020-08-31] MEDS ORDERED: ePHEDrine Sulfate 50 MG/10 ML VIAL ONE (08:30)
[2020-08-31] MEDS ORDERED: Midazolam HCl 2 mg/2 ml Vial ONE (08:33)
[2020-08-31] MEDS ORDERED: Phenylephrine 10 MG/ML VIAL ONE (08:37)
[2020-08-31] MEDS ORDERED: Ketamine 50 MG/ML (10ML VIAL) ONE (08:37)
[2020-08-31] MEDS ORDERED: Fentanyl 100 MCG/2 ML VIAL ONE ×2 (08:37→10:02)
[2020-08-31] MEDS ORDERED: HYDROmorphone 2 MG/ML VIAL SLOW IVP PRN (10:12)
[2020-08-31] MEDS ORDERED: Promethazine HCl 25 MG/ML VIAL SLOW IVP PRN (10:12)
[2020-08-31] MEDS ORDERED: Promethazine HCl 25 MG/ML VIAL IM PRN (10:12)
[2020-08-31] MEDS ORDERED: Meperidine HCl/PF 25 MG/ML VIAL SLOW IVP PRN (10:12)
[2020-08-31] MEDS ORDERED: EPINEPHrine 1 MG/ML AMP ONE (10:22)
[2020-08-31] MEDS ORDERED: Bupivacaine PF 0.5% 30 ML VIAL ONE (10:22)
[2020-08-31] MEDS: Famotidine 20 MG TAB PO SCH ×2 (12:46→20:59)
[2020-08-31] MEDS: Ascorbic Acid 500 mg Chewable Tablet PO SCH ×2 (14:06→21:00)
[2020-08-31] MEDS: Ferrous Sulfate 325 MG TAB PO SCH ×2 (14:07→17:40)
[2020-08-31] MEDS: Lisinopril 20 MG TAB PO SCH (14:07)
[2020-08-31] MEDS: Senokot S 8.6-50 MG TAB PO SCH ×2 (14:07→21:00)
[2020-08-31] MEDS: Potassium Chloride 20 MEQ TAB PO SCH (14:08)
[2020-08-31] MEDS: DULoxetine 30 MG CAP PO SCH (14:08)
[2020-08-31] MEDS: Cholecalciferol 1,000 UNITS (25 MCG) TAB PO SCH (14:08)
[2020-08-31] MEDS: Carvedilol 6.25 MG TAB PO SCH ×2 (14:09→20:59)
[2020-08-31] MEDS: Polyethylene Glycol 3350 17 GM Packet PO SCH (14:11)
[2020-08-31] MEDS ORDERED: Chloraseptic Spray 180 ml Bottle PO PRN (14:48)
[2020-08-31] MEDS: CEFAZOLIN 2 GM in Premix Bag 1 BAG IVPB SCH (17:39)
[2020-09-01] MEDS: Sodium Chloride 1 GM TAB PO SCH ×4 (00:10→23:55)
[2020-09-01] MEDS: traMADol HCl 50 MG TAB PO SCH ×5 (00:10→23:54)
[2020-09-01] MEDS: CEFAZOLIN 2 GM in Premix Bag 1 BAG IVPB SCH (00:11)
[2020-09-01] MEDS: Acetaminophen 325 MG TAB PO SCH ×5 (00:11→23:55)
[2020-09-01] MEDS: Ketorolac Tromethamine 30 MG/ML VIAL IVP SCH ×4 (00:12→17:08)
[2020-09-01] MEDS: Ondansetron PF 4 MG/2 ML Vial IVP PRN (06:01)
[2020-09-01 06:37] LABS: #Eosinphils 0.1 thou/uL (0.0-0.7); #Lymphocytes 0.7 thou/uL (1.20-3.40); #Monocytes 0.3 thou/uL (0.11-0.59); #Neutrophils 7.6 thou/uL (1.40-6.50); %Basophils 0.5 % (0.0-1.0); %Eosinophils 0.7 % (0.0-10.0); %Lymphocytes 7.7 % (21.0-51.0); %Monocytes 3.2 % (0.0-10.0); %Neutrophils 87.9 % (42.0-75.0); Hemoglobin 4.9 g/dL (12.0-16.0); Mean Corpuscular HGB CONC 34.3 g/dL (32.0-36.0); Mean Corpuscular Hemoglobin 35.8 pg (27.0-31.0); Mean Platelet Volume 7.8 fL (7.4-10.4); Platelet Count 140 thou/uL (130-400); RBC Distribution Width 17.8 % (11.5-14.5); Red Blood Cell (RBC) Count 1.37 mill/uL (4.20-5.40); White Blood Cell (WBC) Count 8.7 thou/uL (4.8-10.8)
[2020-09-01 06:53] LABS: Anion Gap 7 mmol/L (10-20); BUN (Urea Nitrogen) 7 mg/dL (9.8-20.1); Calc. Creatinine Clearance 102 mL/min (70-130); Calcium 7.7 mg/dL (7.8-10.44); Carbon Dioxide 25 mmol/L (23-31); Chloride 99 mmol/L (98-107); Glucose 134 mg/dL (80-115); Magnesium 1.7 mg/dL (1.6-2.6); Phosphorus 2.9 mg/dL (2.3-4.7); Potassium 4.4 mmol/L (3.5-5.1); Sodium 127 mmol/L (136-145)
[2020-09-01 07:39] LABS: #Lymphocytes 0.5 thou/uL (1.20-3.40); #Monocytes 0.2 thou/uL (0.11-0.59); #Neutrophils 7.9 thou/uL (1.40-6.50); %Basophils 0.3 % (0.0-1.0); %Eosinophils 0.5 % (0.0-10.0); %Lymphocytes 6.1 % (21.0-51.0); %Monocytes 2.6 % (0.0-10.0); %Neutrophils 90.5 % (42.0-75.0); Mean Corpuscular HGB CONC 35.8 g/dL (32.0-36.0); Mean Corpuscular Hemoglobin 37.2 pg (27.0-31.0); Mean Platelet Volume 7.6 fL (7.4-10.4); Platelet Count 135 thou/uL (130-400); RBC Distribution Width 17.7 % (11.5-14.5); Red Blood Cell (RBC) Count 1.35 mill/uL (4.20-5.40); White Blood Cell (WBC) Count 8.8 thou/uL (4.8-10.8)
[2020-09-01] MEDS ORDERED: Magnesium 2 GM/50 ML 2 GM in Premix Bag 1 BAG IVPB SCH (08:00)
[2020-09-01] MEDS: DULoxetine 30 MG CAP PO SCH (08:32)
[2020-09-01] MEDS: Potassium Chloride 20 MEQ TAB PO SCH (08:32)
[2020-09-01] MEDS: Senokot S 8.6-50 MG TAB PO SCH ×3 (08:32→20:47)
[2020-09-01] MEDS: Polyethylene Glycol 3350 17 GM Packet PO SCH (08:32)
[2020-09-01] MEDS: Ferrous Sulfate 325 MG TAB PO SCH ×2 (08:33→17:07)
[2020-09-01] MEDS: Carvedilol 6.25 MG TAB PO SCH ×2 (08:33→20:44)
[2020-09-01] MEDS: Lisinopril 20 MG TAB PO SCH (08:33)
[2020-09-01] MEDS: Cholecalciferol 1,000 UNITS (25 MCG) TAB PO SCH (08:33)
[2020-09-01] MEDS: Ascorbic Acid 500 mg Chewable Tablet PO SCH ×2 (08:33→20:44)
[2020-09-01] MEDS: Ondansetron ODT 4 MG TAB PO PRN (11:46)
[2020-09-01] MEDS ORDERED: Sodium Chloride 3% 500 ML IVPB SCH (14:45)
[2020-09-01 17:28] LABS: #Lymphocytes 1.1 thou/uL (1.20-3.40); #Monocytes 0.2 thou/uL (0.11-0.59); #Neutrophils 10.6 thou/uL (1.40-6.50); %Eosinophils 0.4 % (0.0-10.0); %Monocytes 1.9 % (0.0-10.0); %Neutrophils 88.8 % (42.0-75.0); Hemoglobin 7.4 g/dL (12.0-16.0); Mean Corpuscular HGB CONC 36.1 g/dL (32.0-36.0); Mean Corpuscular Hemoglobin 35.6 pg (27.0-31.0); Mean Corpuscular Volume 98.6 fL (78.0-98.0); Mean Platelet Volume 7.8 fL (7.4-10.4); Platelet Count 156 thou/uL (130-400); RBC Distribution Width 18.1 % (11.5-14.5); Red Blood Cell (RBC) Count 2.07 mill/uL (4.20-5.40); White Blood Cell (WBC) Count 11.9 thou/uL (4.8-10.8)
[2020-09-01 17:30] LABS: Glucose 135 mg/dL (80-115)
[2020-09-01] MEDS: Docusate 100 MG CAP PO SCH (20:47)
[2020-09-02] MEDS: traMADol HCl 50 MG TAB PO SCH ×3 (05:43→17:21)
[2020-09-02] MEDS: Acetaminophen 325 MG TAB PO SCH ×3 (05:43→17:21)
[2020-09-02 07:58] LABS: Hemoglobin 7.2 g/dL (12.0-16.0); Mean Corpuscular HGB CONC 34.4 g/dL (32.0-36.0); Mean Corpuscular Volume 98.9 fL (78.0-98.0); Mean Platelet Volume 7.6 fL (7.4-10.4); Platelet Count 178 thou/uL (130-400); Red Blood Cell (RBC) Count 2.13 mill/uL (4.20-5.40); White Blood Cell (WBC) Count 9.9 thou/uL (4.8-10.8)
[2020-09-02 08:11] LABS: Glucose 130 mg/dL (80-115)
[2020-09-02 08:14] LABS: Phosphorus 2.8 mg/dL (2.3-4.7)
[2020-09-02 08:15] LABS: Anion Gap 9 mmol/L (10-20); BUN (Urea Nitrogen) 9 mg/dL (9.8-20.1); Calc. Creatinine Clearance 102 mL/min (70-130); Calcium 8.1 mg/dL (7.8-10.44); Carbon Dioxide 24 mmol/L (23-31); Chloride 101 mmol/L (98-107); Glucose 130 mg/dL (80-115); Magnesium 1.7 mg/dL (1.6-2.6); Potassium 4.6 mmol/L (3.5-5.1); Sodium 129 mmol/L (136-145)
[2020-09-02] MEDS: Carvedilol 6.25 MG TAB PO SCH ×2 (08:29→21:10)
[2020-09-02] MEDS: Sodium Chloride 1 GM TAB PO SCH ×2 (08:30→17:21)
[2020-09-02] MEDS: Cholecalciferol 1,000 UNITS (25 MCG) TAB PO SCH (08:30)
[2020-09-02] MEDS: DULoxetine 30 MG CAP PO SCH (08:30)
[2020-09-02] MEDS: Ferrous Sulfate 325 MG TAB PO SCH ×2 (08:30→17:21)
[2020-09-02] MEDS: Ascorbic Acid 500 mg Chewable Tablet PO SCH ×2 (08:31→21:10)
[2020-09-02] MEDS: Lisinopril 20 MG TAB PO SCH (08:31)
[2020-09-02] MEDS: Docusate 100 MG CAP PO SCH ×2 (08:31→21:10)
[2020-09-02] MEDS: Potassium Chloride 20 MEQ TAB PO SCH (08:31)
[2020-09-02] MEDS: Senokot S 8.6-50 MG TAB PO SCH ×4 (08:31→21:11)
[2020-09-02] MEDS: Polyethylene Glycol 3350 17 GM Packet PO SCH (08:31)
[2020-09-02 08:35] LABS: Band 2 % (5-11); Eosinophils 2 % (0-10); Lymphocytes 2 % (21-51); MDiff Complete? YES; Monocytes 3 % (0-10); Neutrophil 91 % (42-75); Platelet Morphology Comment Appears Adequate; Polychromasia SLIGHT = 2-3 cells (100X) (0-2/hpf)
[2020-09-02] MEDS ORDERED: Lisinopril 20 MG TAB PO SCH (09:00)
[2020-09-02] MEDS: Multivitamin W/ Minerals 1 TAB PO SCH (09:21)
[2020-09-02] MEDS: Cyclobenzaprine 10 MG TAB PO PRN (09:22)
[2020-09-02] MEDS: traMADol HCl 50 MG TAB PO PRN ×2 (13:19→21:13)
[2020-09-02] MEDS ORDERED: Furosemide 40 MG TAB PO SCH (14:45)
[2020-09-03] MEDS: traMADol HCl 50 MG TAB PO SCH ×5 (00:16→23:58)
[2020-09-03] MEDS: Acetaminophen 325 MG TAB PO SCH ×5 (00:17→23:58)
[2020-09-03] MEDS: Sodium Chloride 1 GM TAB PO SCH ×3 (00:18→16:36)
[2020-09-03 05:29] LABS: #Eosinphils 0.1 thou/uL (0.0-0.7); #Lymphocytes 1.2 thou/uL (1.20-3.40); #Monocytes 0.6 thou/uL (0.11-0.59); #Neutrophils 5.9 thou/uL (1.40-6.50); %Basophils 0.4 % (0.0-1.0); %Eosinophils 0.9 % (0.0-10.0); %Lymphocytes 14.9 % (21.0-51.0); %Monocytes 7.3 % (0.0-10.0); %Neutrophils 76.4 % (42.0-75.0); Hemoglobin 6.7 g/dL (12.0-16.0); Mean Corpuscular HGB CONC 34.6 g/dL (32.0-36.0); Mean Corpuscular Hemoglobin 34.4 pg (27.0-31.0); Mean Corpuscular Volume 99.2 fL (78.0-98.0); Mean Platelet Volume 7.6 fL (7.4-10.4); Platelet Count 181 thou/uL (130-400); RBC Distribution Width 17.6 % (11.5-14.5); Red Blood Cell (RBC) Count 1.96 mill/uL (4.20-5.40); White Blood Cell (WBC) Count 7.7 thou/uL (4.8-10.8)
[2020-09-03 05:57] LABS: Anion Gap 8 mmol/L (10-20); BUN (Urea Nitrogen) 6 mg/dL (9.8-20.1); Calc. Creatinine Clearance 122 mL/min (70-130); Carbon Dioxide 28 mmol/L (23-31); Chloride 94 mmol/L (98-107); Glucose 110 mg/dL (80-115); Potassium 3.9 mmol/L (3.5-5.1); Sodium 126 mmol/L (136-145)
[2020-09-03] MEDS: Potassium Chloride 20 MEQ TAB PO SCH (08:40)
[2020-09-03] MEDS: Multivitamin W/ Minerals 1 TAB PO SCH (08:41)
[2020-09-03] MEDS: Carvedilol 6.25 MG TAB PO SCH ×2 (08:42→20:29)
[2020-09-03] MEDS: DULoxetine 30 MG CAP PO SCH (08:42)
[2020-09-03] MEDS: Cholecalciferol 1,000 UNITS (25 MCG) TAB PO SCH (08:43)
[2020-09-03] MEDS: Lisinopril 20 MG TAB PO SCH (08:43)
[2020-09-03] MEDS: Ferrous Sulfate 325 MG TAB PO SCH ×3 (08:44→20:29)
[2020-09-03] MEDS: Furosemide 40 MG TAB PO SCH (08:44)
[2020-09-03] MEDS: Ascorbic Acid 500 mg Chewable Tablet PO SCH ×2 (08:45→20:29)
[2020-09-03] MEDS: Ondansetron ODT 4 MG TAB PO PRN (16:52)
[2020-09-03 17:27] LABS: Glucose 113 mg/dL (80-115)
[2020-09-03] MEDS: Cyclobenzaprine 10 MG TAB PO PRN (18:06)
[2020-09-03 21:24] LABS: Glucose 119 mg/dL (80-115)
[2020-09-04] MEDS: Sodium Chloride 1 GM TAB PO SCH ×3 (00:07→16:58)
[2020-09-04] MEDS: Acetaminophen 325 MG TAB PO SCH ×3 (05:22→17:40)
[2020-09-04] MEDS: traMADol HCl 50 MG TAB PO SCH ×3 (05:32→17:40)
[2020-09-04 06:02] LABS: #Eosinphils 0.1 thou/uL (0.0-0.7); #Lymphocytes 1.1 thou/uL (1.20-3.40); #Monocytes 0.9 thou/uL (0.11-0.59); #Neutrophils 5.5 thou/uL (1.40-6.50); %Basophils 0.6 % (0.0-1.0); %Lymphocytes 13.9 % (21.0-51.0); %Monocytes 11.4 % (0.0-10.0); Hemoglobin 10.2 g/dL (12.0-16.0); Mean Corpuscular Hemoglobin 32.6 pg (27.0-31.0); Mean Corpuscular Volume 93.1 fL (78.0-98.0); Mean Platelet Volume 7.4 fL (7.4-10.4); Platelet Count 176 thou/uL (130-400); RBC Distribution Width 17.2 % (11.5-14.5); Red Blood Cell (RBC) Count 3.14 mill/uL (4.20-5.40); White Blood Cell (WBC) Count 7.6 thou/uL (4.8-10.8)
[2020-09-04 06:14] LABS: Anion Gap 9 mmol/L (10-20); BUN (Urea Nitrogen) 4 mg/dL (9.8-20.1); Calc. Creatinine Clearance 122 mL/min (70-130); Calcium 8.1 mg/dL (7.8-10.44); Carbon Dioxide 30 mmol/L (23-31); Chloride 89 mmol/L (98-107); Glucose 102 mg/dL (80-115); Potassium 3.5 mmol/L (3.5-5.1); Sodium 124 mmol/L (136-145)
[2020-09-04] MEDS: Ascorbic Acid 500 mg Chewable Tablet PO SCH ×2 (08:58→21:00)
[2020-09-04] MEDS: Carvedilol 6.25 MG TAB PO SCH ×2 (08:58→20:59)
[2020-09-04] MEDS: Cholecalciferol 1,000 UNITS (25 MCG) TAB PO SCH (08:58)
[2020-09-04] MEDS: DULoxetine 30 MG CAP PO SCH (08:58)
[2020-09-04] MEDS: Potassium Chloride 20 MEQ TAB PO SCH (08:59)
[2020-09-04] MEDS: Lisinopril 20 MG TAB PO SCH (08:59)
[2020-09-04] MEDS: Furosemide 40 MG TAB PO SCH (09:00)
[2020-09-04] MEDS: Multivitamin W/ Minerals 1 TAB PO SCH (09:00)
[2020-09-04] MEDS: Ferrous Sulfate 325 MG TAB PO SCH ×3 (09:00→21:03)
[2020-09-04] MEDS: traMADol HCl 50 MG TAB PO PRN (12:23)
[2020-09-04] MEDS ORDERED: Mag-Al 1200 mg/1200 mg/30 ML UDCUP PO PRN (12:54)
[2020-09-05] MEDS: Sodium Chloride 1 GM TAB PO SCH ×2 (00:22→08:50)
[2020-09-05] MEDS: Acetaminophen 325 MG TAB PO SCH ×3 (00:22→11:51)
[2020-09-05] MEDS: traMADol HCl 50 MG TAB PO SCH ×3 (00:23→11:51)
[2020-09-05] MEDS: traMADol HCl 50 MG TAB PO PRN ×2 (06:20→11:52)
[2020-09-05 07:49] LABS: Mean Corpuscular HGB CONC 35.7 g/dL (32.0-36.0); Mean Corpuscular Volume 95.5 fL (78.0-98.0); Mean Platelet Volume 7.5 fL (7.4-10.4); Platelet Count 163 thou/uL (130-400); RBC Distribution Width 17.4 % (11.5-14.5); Red Blood Cell (RBC) Count 3.22 mill/uL (4.20-5.40); White Blood Cell (WBC) Count 6.6 thou/uL (4.8-10.8)
[2020-09-05 08:05] LABS: Anion Gap 10 mmol/L (10-20); BUN (Urea Nitrogen) 4 mg/dL (9.8-20.1); Calc. Creatinine Clearance 126 mL/min (70-130); Calcium 8.2 mg/dL (7.8-10.44); Carbon Dioxide 31 mmol/L (23-31); Chloride 88 mmol/L (98-107); Glucose 109 mg/dL (80-115); Potassium 3.4 mmol/L (3.5-5.1); Sodium 126 mmol/L (136-145)
[2020-09-05] MEDS: DULoxetine 30 MG CAP PO SCH (08:50)
[2020-09-05] MEDS: Potassium Chloride 20 MEQ TAB PO SCH (08:50)
[2020-09-05] MEDS: Ferrous Sulfate 325 MG TAB PO SCH ×2 (08:51→09:01)
[2020-09-05] MEDS: Cholecalciferol 1,000 UNITS (25 MCG) TAB PO SCH (08:51)
[2020-09-05] MEDS: Carvedilol 6.25 MG TAB PO SCH (08:52)
[2020-09-05] MEDS: Ascorbic Acid 500 mg Chewable Tablet PO SCH (08:52)
[2020-09-05] MEDS: Lisinopril 20 MG TAB PO SCH (08:53)
[2020-09-05] MEDS: Furosemide 40 MG TAB PO SCH (08:53)
[2020-09-05] MEDS: Multivitamin W/ Minerals 1 TAB PO SCH ×2 (08:53→09:00)
[2020-09-05] MEDS: Ondansetron ODT 4 MG TAB PO PRN (10:28)
[2020-09-05 11:41] VITALS: BP 104/75; TEMP 97.4
[2020-09-05] MEDS: Cyclobenzaprine 10 MG TAB PO PRN (11:50)
[2020-09-05] MEDS ORDERED: Dulaglutide [Trulicity] 0.75 MG/0.5 ML Pen.Injctr SC SCH (15:00)
== END 2020-09-05 15:20 | DRG 481 ==
LOC: ERS 10:45 → SDC 14:39 → SURG A 17:00
PROVIDERS: ADMIT Orthopaedic Surgery; ATTEND Surgery
PROC: 30233N1 Transfusion of Nonautologous Red Blood Cells into Peripheral Vein, Percutaneous Approach (ICD-10-PCS; 2020-08-30)
PROC: 0QS634Z Reposition Right Upper Femur with Internal Fixation Device, Percutaneous Approach (ICD-10-PCS; principal; 2020-08-31)
DX: S72.21XA Displaced subtrochanteric fracture of right femur, initial encounter for closed fracture (principal); Z20.822 Contact with and (suspected) exposure to COVID-19; E87.1 Hypo-osmolality and hyponatremia; D62 Acute posthemorrhagic anemia; R64 Cachexia; I42.9 Cardiomyopathy, unspecified; C79.51 Secondary malignant neoplasm of bone; C34.90 Malignant neoplasm of unspecified part of unspecified bronchus or lung; C79.31 Secondary malignant neoplasm of brain; C79.70 Secondary malignant neoplasm of unspecified adrenal gland; C7A.1 Malignant poorly differentiated neuroendocrine tumors; W18.30XA Fall on same level, unspecified, initial encounter; E11.9 Type 2 diabetes mellitus without complications; F17.210 Nicotine dependence, cigarettes, uncomplicated; I25.10 Atherosclerotic heart disease of native coronary artery without angina pectoris; I10 Essential (primary) hypertension; E78.5 Hyperlipidemia, unspecified; G89.29 Other chronic pain; M54.9 Dorsalgia, unspecified; E78.00 Pure hypercholesterolemia, unspecified; R42 Dizziness and giddiness; K21.9 Gastro-esophageal reflux disease without esophagitis; F32.9 Major depressive disorder, single episode, unspecified; M81.0 Age-related osteoporosis without current pathological fracture; Z86.010 Personal history of colon polyps; Z98.84 Bariatric surgery status; Z95.810 Presence of automatic (implantable) cardiac defibrillator; Z80.0 Family history of malignant neoplasm of digestive organs; Z95.1 Presence of aortocoronary bypass graft; Z79.899 Other long term (current) drug therapy; Z79.4 Long term (current) use of insulin; Z88.5 Allergy status to narcotic agent; Z68.22 Body mass index [BMI] 22.0-22.9, adult
CPT/HCPCS: 36415; 36416; 36430; 71045; 72170; 76000; 80048; 80053; 82248; 82947; 83615; 83735; 84100; 84436; 84443; 84550; 85025; 85027; 85060; 85610; 85730; 86850; 86900; 86901; 93005; 96374; 96375; 96376; C1713; J0171; J0690; J1885; J2250; J2370; J2405; J3010; J3475; J3490; J7050; J7131; J7620; P9016; Q0162; S0020; S0028; U0002

== ENCOUNTER 2020-10-08 09:27 | Outpatient (CLI) | payer BC | END 2020-10-08 09:28 | disposition home or self-care (01) | LOC: PET 09:27 | PROVIDERS: ATTEND Internal Medicine Hematology & Oncology | DX: C34.90 Malignant neoplasm of unspecified part of unspecified bronchus or lung (principal); J98.59 Other diseases of mediastinum, not elsewhere classified; E27.9 Disorder of adrenal gland, unspecified; K80.20 Calculus of gallbladder without cholecystitis without obstruction | CPT/HCPCS: 78815; A9552 ==

== ENCOUNTER 2020-10-26 17:22 | Inpatient (IN) | payer BC ==
[~2020-10-26 17:22] MED LIST: Iopamidol-370 76% 500 ML 1 ML ONE
[2020-10-26] MEDS ORDERED: Magnesium 2 GM/50 ML BAG (IN WATER) ONE (17:49)
[2020-10-26] MEDS ORDERED: Cefepime 2 GM VIAL ONE (17:49)
[2020-10-26] MEDS ORDERED: Dexamethasone 10 MG/ML VIAL ONE (17:49)
[2020-10-26] MEDS ORDERED: Albuterol Sulfate 2.5 mg/0.5 ml Neb ONE (17:50)
[2020-10-26 18:46] LABS: #Lymphocytes 0.5 thou/uL (1.20-3.40); #Neutrophils 18.1 thou/uL (1.40-6.50); %Lymphocytes 2.6 % (21.0-51.0); %Neutrophils 92.4 % (42.0-75.0); Hemoglobin 11.8 g/dL (12.0-16.0); Mean Corpuscular HGB CONC 35.2 g/dL (32.0-36.0); Mean Corpuscular Hemoglobin 37.8 pg (27.0-31.0); Mean Platelet Volume 7.3 fL (7.4-10.4); Platelet Count 227 thou/uL (130-400); RBC Distribution Width 17.8 % (11.5-14.5); Red Blood Cell (RBC) Count 3.11 mill/uL (4.20-5.40); White Blood Cell (WBC) Count 19.6 thou/uL (4.8-10.8)
[2020-10-26 19:04] LABS: SARS-CoV-2 NAA Rapid Test Not Detected (NotDetected)
[2020-10-26 19:07] LABS: ALT (SGPT) 11 U/L (8-55); AST (SGOT) 15 U/L (5-34); Albumin 2.8 g/dL (3.4-4.8); Alkaline Phosphatase 150 U/L (40-110); Anion Gap 19 mmol/L (10-20); BUN (Urea Nitrogen) 6 mg/dL (9.8-20.1); Bilirubin, Total 0.9 mg/dL (0.2-1.2); CK (CPK) 13 U/L (29-168); Calc. Creatinine Clearance 0 mL/min (70-130); Calcium 8.3 mg/dL (7.8-10.44); Carbon Dioxide 23 mmol/L (23-31); Chloride 82 mmol/L (98-107); Globulin 2.8 g/dL (2.4-3.5); Glucose 173 mg/dL (80-115); Lipase 14 U/L (8-78); Potassium 3.5 mmol/L (3.5-5.1); Protein, Total 5.6 g/dL (5.8-8.1); Sodium 120 mmol/L (136-145)
[2020-10-26] MEDS ORDERED: Vancomycin 1 GM/200 ML BAG ONE (19:11)
[2020-10-26 19:17] LABS: Anisocytosis SLIGHT = 6-15 cells (100X) (0-5/hpf); MDiff Complete? YES; Macrocytosis SLIGHT = 6-15 cells (100X) (0-5/hpf); Platelet Morphology Comment Appears Adequate; Polychromasia SLIGHT = 2-3 cells (100X) (0-2/hpf)
[2020-10-26] MEDS ORDERED: Acetaminophen 325 MG TAB PO PRN (20:29)
[2020-10-26] MEDS ORDERED: ALPRAZolam 0.25 MG TAB PO PRN (20:31)
[2020-10-26] MEDS ORDERED: Tolvaptan 15 MG TAB PO SCH (20:34)
[2020-10-26] MEDS ORDERED: Benzonatate 100 MG CAP PO PRN (20:36)
[2020-10-26] MEDS ORDERED: TOLVAPTAN 30 MG TAB PO SCH (21:00)
[2020-10-26] MEDS: Ezetimibe 10 MG TAB PO SCH (21:51)
[2020-10-26] MEDS: guaiFENesin ER 600 MG TAB PO SCH (21:51)
[2020-10-26] MEDS: Cefepime 1 GM in Sodium Chloride 0.9% 100 ML IVPB SCH (21:51)
[2020-10-26] MEDS: Furosemide 40 MG/4 ML VIAL SLOW IVP SCH (22:05)
[2020-10-26 23:45] LABS: Potassium, Urine Less than 10.0 mmol/L; Sodium, Urine 78 mmol/L (Not Available)
[2020-10-27 00:04] LABS: Anion Gap 21 mmol/L (10-20); BUN (Urea Nitrogen) 7 mg/dL (9.8-20.1); Calc. Creatinine Clearance 0 mL/min (70-130); Calcium 8.6 mg/dL (7.8-10.44); Carbon Dioxide 22 mmol/L (23-31); Chloride 83 mmol/L (98-107); Glucose 240 mg/dL (80-115); Potassium 3.2 mmol/L (3.5-5.1); Sodium 123 mmol/L (136-145)
[2020-10-27] MEDS: HYDROcodone/Acetaminophen 5/325 mg Tablet PO PRN ×2 (05:10→20:22)
[2020-10-27] MEDS: hydrALAZINE 20 MG/ML VIAL SLOW IVP PRN ×3 (05:10→20:33)
[2020-10-27 05:57] LABS: Hemoglobin 12.3 g/dL (12.0-16.0); Mean Corpuscular HGB CONC 34.6 g/dL (32.0-36.0); Mean Corpuscular Hemoglobin 37.1 pg (27.0-31.0); Mean Platelet Volume 7.5 fL (7.4-10.4); Platelet Count 287 thou/uL (130-400); RBC Distribution Width 17.8 % (11.5-14.5); Red Blood Cell (RBC) Count 3.33 mill/uL (4.20-5.40); White Blood Cell (WBC) Count 13.6 thou/uL (4.8-10.8)
[2020-10-27] MEDS: HumaLOG 300 UNITS/3 ML VIAL SC PRN ×2 (06:13→11:17)
[2020-10-27 06:15] LABS: ALT (SGPT) 11 U/L (8-55); AST (SGOT) 12 U/L (5-34); Albumin 3.2 g/dL (3.4-4.8); Alkaline Phosphatase 150 U/L (40-110); Anion Gap 16 mmol/L (10-20); BUN (Urea Nitrogen) 7 mg/dL (9.8-20.1); Bilirubin, Total 0.9 mg/dL (0.2-1.2); Calc. Creatinine Clearance 98 mL/min (70-130); Calcium 8.9 mg/dL (7.8-10.44); Carbon Dioxide 28 mmol/L (23-31); Chloride 87 mmol/L (98-107); Globulin 3.1 g/dL (2.4-3.5); Glucose 202 mg/dL (80-115); Magnesium 1.8 mg/dL (1.6-2.6); Protein, Total 6.3 g/dL (5.8-8.1); Sodium 128 mmol/L (136-145)
[2020-10-27 06:19] LABS: Potassium 2.8 mmol/L (3.5-5.1)
[2020-10-27 06:26] LABS: Band 24 % (5-11); Lymphocytes 4 % (21-51); MDiff Complete? YES; Monocytes 16 % (0-10); Neutrophil 56 % (42-75)
[2020-10-27] MEDS ORDERED: Electrolyte Replacement Protocol 1 EACH FS PRN (06:41)
[2020-10-27] MEDS: Potassium Chloride 20 MEQ TAB PO SCH ×2 (06:48→11:16)
[2020-10-27] MEDS ORDERED: Magnesium 2 GM/50 ML 2 GM in Premix Bag 1 BAG IVPB SCH (07:00)
[2020-10-27] MEDS: Cefepime 1 GM in Sodium Chloride 0.9% 100 ML IVPB SCH ×2 (08:24→20:21)
[2020-10-27] MEDS: Furosemide 40 MG TAB PO SCH (08:25)
[2020-10-27] MEDS: Enoxaparin Sodium 40 MG/0.4 ML SYRINGE SC SCH (08:25)
[2020-10-27] MEDS: Lisinopril 20 MG TAB PO SCH (08:26)
[2020-10-27] MEDS: guaiFENesin ER 600 MG TAB PO SCH ×2 (08:26→20:21)
[2020-10-27] MEDS: TOLVAPTAN 30 MG TAB PO SCH (08:28)
[2020-10-27] MEDS ORDERED: Tolvaptan 15 MG TAB PO SCH (09:00)
[2020-10-27] MEDS ORDERED: DULoxetine 30 MG CAP PO SCH (09:00)
[2020-10-27] MEDS ORDERED: Potassium Chloride 20 MEQ TAB PO SCH ×2 (09:00→17:45)
[2020-10-27] MEDS ORDERED: Non-Formulary Item 1 EACH (Dulaglutide [Trulicity] 0.75 MG/0.5 ML Pen.Injctr) SC SCH (09:00)
[2020-10-27] MEDS: Carvedilol 6.25 MG TAB PO SCH ×2 (09:33→20:22)
[2020-10-27] MEDS: Dexamethasone 1 MG TAB PO SCH ×2 (09:33→16:36)
[2020-10-27] MEDS: Cholecalciferol 1,000 UNITS (25 MCG) TAB PO SCH (09:33)
[2020-10-27 09:37] LABS: Anion Gap 16 mmol/L (10-20); BUN (Urea Nitrogen) 7 mg/dL (9.8-20.1); Calc. Creatinine Clearance 100 mL/min (70-130); Calcium 8.9 mg/dL (7.8-10.44); Carbon Dioxide 27 mmol/L (23-31); Chloride 88 mmol/L (98-107); Glucose 154 mg/dL (80-115); Potassium 3.1 mmol/L (3.5-5.1); Sodium 128 mmol/L (136-145)
[2020-10-27 15:24] LABS: Anion Gap 16 mmol/L (10-20); BUN (Urea Nitrogen) 6 mg/dL (9.8-20.1); Calc. Creatinine Clearance 102 mL/min (70-130); Calcium 9.2 mg/dL (7.8-10.44); Carbon Dioxide 30 mmol/L (23-31); Chloride 91 mmol/L (98-107); Glucose 120 mg/dL (80-115); Potassium 3.5 mmol/L (3.5-5.1); Sodium 133 mmol/L (136-145)
[2020-10-27] MEDS ORDERED: Dextrose 5% in Water 1,000 ML IV SCH (17:30)
[2020-10-27] MEDS ORDERED: Bisacodyl 5 MG TAB PO PRN (18:15)
[2020-10-27] MEDS: Ezetimibe 10 MG TAB PO SCH (20:21)
[2020-10-27] MEDS: Furosemide 40 MG/4 ML VIAL SLOW IVP SCH (20:59)
[2020-10-27 21:36] LABS: Anion Gap 14 mmol/L (10-20); BUN (Urea Nitrogen) 6 mg/dL (9.8-20.1); Calc. Creatinine Clearance 106 mL/min (70-130); Calcium 8.6 mg/dL (7.8-10.44); Carbon Dioxide 28 mmol/L (23-31); Chloride 89 mmol/L (98-107); Glucose 212 mg/dL (80-115); Potassium 4.1 mmol/L (3.5-5.1); Sodium 127 mmol/L (136-145)
[2020-10-27] MEDS: Cepastat Lozenges 1 LOZ PO PRN (21:57)
[2020-10-28] MEDS: hydrALAZINE 20 MG/ML VIAL SLOW IVP PRN (03:20)
[2020-10-28] MEDS: HYDROcodone/Acetaminophen 5/325 mg Tablet PO PRN ×2 (03:21→20:23)
[2020-10-28] MEDS: Cepastat Lozenges 1 LOZ PO PRN (03:26)
[2020-10-28 04:49] LABS: #Lymphocytes 1.1 thou/uL (1.20-3.40); #Monocytes 1.5 thou/uL (0.11-0.59); #Neutrophils 8.3 thou/uL (1.40-6.50); %Basophils 0.4 % (0.0-1.0); %Eosinophils 0.4 % (0.0-10.0); %Lymphocytes 9.6 % (21.0-51.0); %Monocytes 13.4 % (0.0-10.0); %Neutrophils 76.3 % (42.0-75.0); Hemoglobin 11.1 g/dL (12.0-16.0); Mean Corpuscular HGB CONC 32.2 g/dL (32.0-36.0); Mean Corpuscular Hemoglobin 35.3 pg (27.0-31.0); Mean Platelet Volume 6.9 fL (7.4-10.4); Platelet Count 320 thou/uL (130-400); RBC Distribution Width 17.8 % (11.5-14.5); Red Blood Cell (RBC) Count 3.16 mill/uL (4.20-5.40); White Blood Cell (WBC) Count 10.9 thou/uL (4.8-10.8)
[2020-10-28 05:11] LABS: Anion Gap 11 mmol/L (10-20); BUN (Urea Nitrogen) 6 mg/dL (9.8-20.1); Calc. Creatinine Clearance 115 mL/min (70-130); Calcium 9.2 mg/dL (7.8-10.44); Carbon Dioxide 30 mmol/L (23-31); Chloride 90 mmol/L (98-107); Glucose 141 mg/dL (80-115); Magnesium 1.9 mg/dL (1.6-2.6); Potassium 4.4 mmol/L (3.5-5.1); Sodium 127 mmol/L (136-145)
[2020-10-28] MEDS ORDERED: Magnesium 2 GM/50 ML 2 GM in Premix Bag 1 BAG IVPB SCH (05:45)
[2020-10-28] MEDS: Carvedilol 6.25 MG TAB PO SCH ×2 (08:24→20:23)
[2020-10-28] MEDS: Dexamethasone 1 MG TAB PO SCH ×2 (08:24→17:30)
[2020-10-28] MEDS: Cefepime 1 GM in Sodium Chloride 0.9% 100 ML IVPB SCH ×2 (08:25→20:22)
[2020-10-28] MEDS: Cholecalciferol 1,000 UNITS (25 MCG) TAB PO SCH (08:26)
[2020-10-28] MEDS: DULoxetine 30 MG CAP PO SCH (08:26)
[2020-10-28] MEDS: Furosemide 40 MG TAB PO SCH (08:27)
[2020-10-28] MEDS: guaiFENesin ER 600 MG TAB PO SCH ×2 (08:27→20:22)
[2020-10-28] MEDS: Enoxaparin Sodium 40 MG/0.4 ML SYRINGE SC SCH (08:27)
[2020-10-28] MEDS: Lisinopril 20 MG TAB PO SCH (08:28)
[2020-10-28] MEDS: Potassium Chloride 20 MEQ TAB PO SCH (08:28)
[2020-10-28 10:51] LABS: Anion Gap 12 mmol/L (10-20); BUN (Urea Nitrogen) 7 mg/dL (9.8-20.1); Calc. Creatinine Clearance 106 mL/min (70-130); Calcium 9.1 mg/dL (7.8-10.44); Carbon Dioxide 31 mmol/L (23-31); Chloride 88 mmol/L (98-107); Glucose 166 mg/dL (80-115); Potassium 4.5 mmol/L (3.5-5.1); Sodium 126 mmol/L (136-145)
[2020-10-28] MEDS: HumaLOG 300 UNITS/3 ML VIAL SC PRN (11:13)
[2020-10-28] MEDS ORDERED: TOLVAPTAN 30 MG TAB PO SCH (15:15)
[2020-10-28 16:27] LABS: Anion Gap 15 mmol/L (10-20); BUN (Urea Nitrogen) 8 mg/dL (9.8-20.1); Calc. Creatinine Clearance 104 mL/min (70-130); Calcium 9.1 mg/dL (7.8-10.44); Carbon Dioxide 29 mmol/L (23-31); Chloride 84 mmol/L (98-107); Glucose 185 mg/dL (80-115); Potassium 4.6 mmol/L (3.5-5.1); Sodium 123 mmol/L (136-145)
[2020-10-28] MEDS ORDERED: Furosemide 40 MG/4 ML VIAL ONE (20:15)
[2020-10-28] MEDS: Ezetimibe 10 MG TAB PO SCH (20:22)
[2020-10-28] MEDS: Furosemide 40 MG/4 ML VIAL SLOW IVP SCH (20:22)
[2020-10-28] MEDS ORDERED: Calcium Carbonate 500 MG ChewTAB PO PRN (21:08)
[2020-10-28 22:18] LABS: Anion Gap 15 mmol/L (10-20); BUN (Urea Nitrogen) 9 mg/dL (9.8-20.1); Calc. Creatinine Clearance 100 mL/min (70-130); Carbon Dioxide 27 mmol/L (23-31); Chloride 84 mmol/L (98-107); Glucose 186 mg/dL (80-115); Potassium 4.3 mmol/L (3.5-5.1); Sodium 122 mmol/L (136-145)
[2020-10-29 05:04] LABS: #Eosinphils 0.1 thou/uL (0.0-0.7); #Lymphocytes 0.9 thou/uL (1.20-3.40); #Monocytes 1.4 thou/uL (0.11-0.59); #Neutrophils 7.4 thou/uL (1.40-6.50); %Basophils 0.3 % (0.0-1.0); %Eosinophils 0.7 % (0.0-10.0); %Lymphocytes 9.5 % (21.0-51.0); %Neutrophils 75.6 % (42.0-75.0); Mean Corpuscular HGB CONC 32.4 g/dL (32.0-36.0); Mean Corpuscular Hemoglobin 35.2 pg (27.0-31.0); Mean Platelet Volume 7.1 fL (7.4-10.4); Platelet Count 291 thou/uL (130-400); RBC Distribution Width 17.6 % (11.5-14.5); Red Blood Cell (RBC) Count 3.41 mill/uL (4.20-5.40); White Blood Cell (WBC) Count 9.7 thou/uL (4.8-10.8)
[2020-10-29 05:23] LABS: Anion Gap 15 mmol/L (10-20); BUN (Urea Nitrogen) 8 mg/dL (9.8-20.1); CRP (Inflammatory) 9.03 mg/dL (= or < 0.5); Calc. Creatinine Clearance 102 mL/min (70-130); Calcium 9.6 mg/dL (7.8-10.44); Carbon Dioxide 29 mmol/L (23-31); Chloride 85 mmol/L (98-107); Glucose 148 mg/dL (80-115); Potassium 4.1 mmol/L (3.5-5.1); Sodium 125 mmol/L (136-145)
[2020-10-29] MEDS: hydrALAZINE 20 MG/ML VIAL SLOW IVP PRN (05:35)
[2020-10-29] MEDS: HYDROcodone/Acetaminophen 5/325 mg Tablet PO PRN ×2 (05:35→17:31)
[2020-10-29] MEDS: DULoxetine 30 MG CAP PO SCH (09:54)
[2020-10-29] MEDS: Lisinopril 20 MG TAB PO SCH (09:55)
[2020-10-29] MEDS: Furosemide 40 MG TAB PO SCH (09:56)
[2020-10-29] MEDS: guaiFENesin ER 600 MG TAB PO SCH ×2 (09:56→20:28)
[2020-10-29] MEDS: Carvedilol 25 MG TAB PO SCH ×2 (09:56→20:28)
[2020-10-29] MEDS: Cholecalciferol 1,000 UNITS (25 MCG) TAB PO SCH (09:57)
[2020-10-29] MEDS: Potassium Chloride 20 MEQ TAB PO SCH (09:57)
[2020-10-29] MEDS: TOLVAPTAN 30 MG TAB PO SCH (09:58)
[2020-10-29] MEDS: Dexamethasone 1 MG TAB PO SCH ×2 (09:58→17:30)
[2020-10-29] MEDS: Enoxaparin Sodium 40 MG/0.4 ML SYRINGE SC SCH (09:59)
[2020-10-29] MEDS: Cefepime 1 GM in Sodium Chloride 0.9% 100 ML IVPB SCH ×2 (09:59→20:28)
[2020-10-29] MEDS: HumaLOG 300 UNITS/3 ML VIAL SC PRN ×2 (12:33→20:29)
[2020-10-29 20:25] LABS: Potassium 4.2 mmol/L (3.5-5.1)
[2020-10-29] MEDS: Ezetimibe 10 MG TAB PO SCH (20:28)
[2020-10-30 05:17] LABS: #Lymphocytes 0.9 thou/uL (1.20-3.40); #Monocytes 1.1 thou/uL (0.11-0.59); #Neutrophils 7.2 thou/uL (1.40-6.50); %Basophils 0.2 % (0.0-1.0); %Eosinophils 0.4 % (0.0-10.0); %Lymphocytes 9.8 % (21.0-51.0); %Monocytes 11.6 % (0.0-10.0); Hemoglobin 11.8 g/dL (12.0-16.0); Mean Corpuscular Hemoglobin 35.8 pg (27.0-31.0); Mean Platelet Volume 6.6 fL (7.4-10.4); Platelet Count 254 thou/uL (130-400); RBC Distribution Width 17.4 % (11.5-14.5); Red Blood Cell (RBC) Count 3.31 mill/uL (4.20-5.40); White Blood Cell (WBC) Count 9.3 thou/uL (4.8-10.8)
[2020-10-30 05:40] LABS: Anion Gap 16 mmol/L (10-20); BUN (Urea Nitrogen) 6 mg/dL (9.8-20.1); CRP (Inflammatory) 6.47 mg/dL (= or < 0.5); Calc. Creatinine Clearance 115 mL/min (70-130); Calcium 9.1 mg/dL (7.8-10.44); Carbon Dioxide 25 mmol/L (23-31); Chloride 90 mmol/L (98-107); Glucose 124 mg/dL (80-115); Magnesium 1.6 mg/dL (1.6-2.6); Sodium 127 mmol/L (136-145)
[2020-10-30] MEDS ORDERED: Magnesium 2 GM/50 ML 2 GM in Premix Bag 1 BAG IVPB SCH (06:45)
[2020-10-30] MEDS: Furosemide 40 MG TAB PO SCH (08:13)
[2020-10-30] MEDS: Lisinopril 20 MG TAB PO SCH (08:13)
[2020-10-30] MEDS: Carvedilol 25 MG TAB PO SCH ×2 (08:13→20:22)
[2020-10-30] MEDS: guaiFENesin ER 600 MG TAB PO SCH ×2 (10:46→20:22)
[2020-10-30] MEDS: Cholecalciferol 1,000 UNITS (25 MCG) TAB PO SCH (10:46)
[2020-10-30] MEDS: Potassium Chloride 20 MEQ TAB PO SCH (10:47)
[2020-10-30] MEDS: Amlodipine 5 MG TAB PO SCH (10:47)
[2020-10-30] MEDS: DULoxetine 30 MG CAP PO SCH (10:47)
[2020-10-30] MEDS: TOLVAPTAN 30 MG TAB PO SCH (10:48)
[2020-10-30] MEDS: Cefepime 1 GM in Sodium Chloride 0.9% 100 ML IVPB SCH ×2 (10:48→20:22)
[2020-10-30] MEDS: Dexamethasone 1 MG TAB PO SCH ×2 (10:49→17:27)
[2020-10-30] MEDS: Enoxaparin Sodium 40 MG/0.4 ML SYRINGE SC SCH (10:49)
[2020-10-30] MEDS: HumaLOG 300 UNITS/3 ML VIAL SC PRN ×2 (11:00→17:35)
[2020-10-30] MEDS ORDERED: Ondansetron ODT 8 MG TAB PO PRN (16:52)
[2020-10-30] MEDS ORDERED: Loratadine 10 MG TAB PO PRN (16:58)
[2020-10-30] MEDS ORDERED: Fluticasone Propionate Nasal Spray 16 gm Bottle NASAL PRN (16:58)
[2020-10-30] MEDS ORDERED: Polyethylene Glycol 3350 17 GM Packet PO SCH (17:15)
[2020-10-30] MEDS: Ezetimibe 10 MG TAB PO SCH (20:22)
[2020-10-30] MEDS: HYDROcodone/Acetaminophen 5/325 mg Tablet PO PRN (23:48)
[2020-10-31] MEDS: hydrALAZINE 20 MG/ML VIAL SLOW IVP PRN (04:24)
[2020-10-31 05:01] LABS: Anion Gap 15 mmol/L (10-20); BUN (Urea Nitrogen) 7 mg/dL (9.8-20.1); Calc. Creatinine Clearance 96 mL/min (70-130); Calcium 9.3 mg/dL (7.8-10.44); Carbon Dioxide 27 mmol/L (23-31); Chloride 89 mmol/L (98-107); Glucose 150 mg/dL (80-115); Potassium 4.3 mmol/L (3.5-5.1); Sodium 127 mmol/L (136-145)
[2020-10-31 05:05] LABS: #Eosinphils 0.1 thou/uL (0.0-0.7); #Lymphocytes 1.3 thou/uL (1.20-3.40); #Monocytes 1.2 thou/uL (0.11-0.59); #Neutrophils 8.8 thou/uL (1.40-6.50); %Eosinophils 0.6 % (0.0-10.0); %Lymphocytes 11.1 % (21.0-51.0); %Monocytes 10.8 % (0.0-10.0); %Neutrophils 77.4 % (42.0-75.0); Hemoglobin 11.1 g/dL (12.0-16.0); Mean Corpuscular HGB CONC 32.5 g/dL (32.0-36.0); Mean Corpuscular Hemoglobin 35.7 pg (27.0-31.0); Mean Platelet Volume 6.8 fL (7.4-10.4); Platelet Count 251 thou/uL (130-400); RBC Distribution Width 17.5 % (11.5-14.5); Red Blood Cell (RBC) Count 3.12 mill/uL (4.20-5.40); White Blood Cell (WBC) Count 11.4 thou/uL (4.8-10.8)
[2020-10-31] MEDS: HYDROcodone/Acetaminophen 5/325 mg Tablet PO PRN (05:14)
[2020-10-31] MEDS ORDERED: Non-Formulary Item 1 EACH (Omeprazole [Omeprazole] 40 MG Capsule.Dr) PO SCH (09:00)
[2020-10-31] MEDS: Amlodipine 5 MG TAB PO SCH (10:23)
[2020-10-31] MEDS: DULoxetine 30 MG CAP PO SCH (10:23)
[2020-10-31] MEDS: Cholecalciferol 1,000 UNITS (25 MCG) TAB PO SCH (10:23)
[2020-10-31] MEDS: Potassium Chloride 20 MEQ TAB PO SCH (10:24)
[2020-10-31] MEDS: Lisinopril 20 MG TAB PO SCH (10:24)
[2020-10-31] MEDS: Furosemide 40 MG TAB PO SCH (10:24)
[2020-10-31] MEDS: guaiFENesin ER 600 MG TAB PO SCH ×2 (10:24→21:25)
[2020-10-31] MEDS: Carvedilol 25 MG TAB PO SCH ×2 (10:24→21:25)
[2020-10-31] MEDS: TOLVAPTAN 30 MG TAB PO SCH (10:25)
[2020-10-31] MEDS: Dexamethasone 1 MG TAB PO SCH ×2 (10:25→17:33)
[2020-10-31] MEDS: Cefepime 1 GM in Sodium Chloride 0.9% 100 ML IVPB SCH ×2 (10:25→21:29)
[2020-10-31] MEDS: Enoxaparin Sodium 40 MG/0.4 ML SYRINGE SC SCH (10:26)
[2020-10-31] MEDS: Polyethylene Glycol 3350 17 GM Packet PO SCH (10:26)
[2020-10-31] MEDS ORDERED: Amlodipine 5 MG TAB PO SCH (12:00)
[2020-10-31] MEDS: HumaLOG 300 UNITS/3 ML VIAL SC PRN ×3 (12:48→22:28)
[2020-10-31 14:08] VITALS: BMI 22.1
[2020-10-31] MEDS ORDERED: hydrALAZINE 25 MG TAB PO SCH (15:00)
[2020-10-31] MEDS: hydrALAZINE 25 MG TAB PO SCH (21:24)
[2020-10-31] MEDS: Ezetimibe 10 MG TAB PO SCH (21:25)
[2020-11-01 05:00] LABS: Anion Gap 11 mmol/L (10-20); BUN (Urea Nitrogen) 9 mg/dL (9.8-20.1); Calc. Creatinine Clearance 96 mL/min (70-130); Calcium 9.3 mg/dL (7.8-10.44); Carbon Dioxide 31 mmol/L (23-31); Chloride 91 mmol/L (98-107); Glucose 163 mg/dL (80-115); Potassium 4.1 mmol/L (3.5-5.1); Sodium 129 mmol/L (136-145)
[2020-11-01] MEDS: Dexamethasone 1 MG TAB PO SCH ×2 (08:40→16:39)
[2020-11-01] MEDS ORDERED: Amlodipine 5 MG TAB PO SCH (09:00)
[2020-11-01] MEDS: Cefepime 1 GM in Sodium Chloride 0.9% 100 ML IVPB SCH ×2 (09:34→21:09)
[2020-11-01] MEDS: TOLVAPTAN 30 MG TAB PO SCH (09:35)
[2020-11-01] MEDS: Enoxaparin Sodium 40 MG/0.4 ML SYRINGE SC SCH (09:35)
[2020-11-01] MEDS: DULoxetine 30 MG CAP PO SCH (09:35)
[2020-11-01] MEDS: Polyethylene Glycol 3350 17 GM Packet PO SCH ×2 (09:35→22:51)
[2020-11-01] MEDS: Furosemide 40 MG TAB PO SCH (09:36)
[2020-11-01] MEDS: Cholecalciferol 1,000 UNITS (25 MCG) TAB PO SCH (09:36)
[2020-11-01] MEDS: hydrALAZINE 25 MG TAB PO SCH ×2 (09:36→21:09)
[2020-11-01] MEDS: Potassium Chloride 20 MEQ TAB PO SCH (09:36)
[2020-11-01] MEDS: Lisinopril 20 MG TAB PO SCH (09:37)
[2020-11-01] MEDS: Carvedilol 25 MG TAB PO SCH ×2 (09:37→21:10)
[2020-11-01] MEDS: guaiFENesin ER 600 MG TAB PO SCH ×2 (09:48→21:09)
[2020-11-01] MEDS: HYDROcodone/Acetaminophen 5/325 mg Tablet PO PRN (10:30)
[2020-11-01] MEDS ORDERED: NIFEdipine XL 30 MG TAB PO SCH (10:30)
[2020-11-01] MEDS: HumaLOG 300 UNITS/3 ML VIAL SC PRN ×2 (11:45→18:16)
[2020-11-01] MEDS ORDERED: Bisacodyl 10 MG SUPP PR SCH (17:30)
[2020-11-01] MEDS: Ezetimibe 10 MG TAB PO SCH (21:09)
[2020-11-02] MEDS: Fleet Enema 133 ML BOT PR SCH ×2 (05:02→06:37)
[2020-11-02 06:16] LABS: Anion Gap 16 mmol/L (10-20); BUN (Urea Nitrogen) 9 mg/dL (9.8-20.1); Calc. Creatinine Clearance 100 mL/min (70-130); Calcium 9.7 mg/dL (7.8-10.44); Carbon Dioxide 26 mmol/L (23-31); Chloride 90 mmol/L (98-107); Glucose 117 mg/dL (80-115); Potassium 4.4 mmol/L (3.5-5.1); Sodium 128 mmol/L (136-145)
[2020-11-02] MEDS ORDERED: Sodium Chloride 1 GM TAB PO SCH (09:00)
[2020-11-02] MEDS ORDERED: NIFEdipine XL 90 MG TAB PO SCH (09:00)
[2020-11-02] MEDS: Enoxaparin Sodium 40 MG/0.4 ML SYRINGE SC SCH (09:37)
[2020-11-02] MEDS: Lisinopril 20 MG TAB PO SCH (09:38)
[2020-11-02] MEDS: Cefepime 1 GM in Sodium Chloride 0.9% 100 ML IVPB SCH (09:38)
[2020-11-02] MEDS: guaiFENesin ER 600 MG TAB PO SCH (09:39)
[2020-11-02] MEDS: Furosemide 40 MG TAB PO SCH (09:39)
[2020-11-02] MEDS: Cholecalciferol 1,000 UNITS (25 MCG) TAB PO SCH (09:39)
[2020-11-02] MEDS: Carvedilol 25 MG TAB PO SCH (09:39)
[2020-11-02] MEDS: DULoxetine 30 MG CAP PO SCH (09:40)
[2020-11-02] MEDS: hydrALAZINE 25 MG TAB PO SCH (09:40)
[2020-11-02] MEDS: Potassium Chloride 20 MEQ TAB PO SCH (09:40)
[2020-11-02] MEDS: TOLVAPTAN 30 MG TAB PO SCH (09:41)
[2020-11-02] MEDS: Dexamethasone 1 MG TAB PO SCH (09:41)
[2020-11-02] MEDS: Polyethylene Glycol 3350 17 GM Packet PO SCH (09:42)
[2020-11-02] MEDS: HumaLOG 300 UNITS/3 ML VIAL SC PRN (11:36)
[2020-11-02 11:46] VITALS: BP 107/58; TEMP 97.6
== END 2020-11-02 14:40 | DRG 871 ==
LOC: ERS 17:22 → 2NO 19:40
PROVIDERS: ADMIT Internal Medicine; ATTEND Internal Medicine
DX: A41.9 Sepsis, unspecified organism (principal); L89.153 Pressure ulcer of sacral region, stage 3; L89.323 Pressure ulcer of left buttock, stage 3; J18.9 Pneumonia, unspecified organism; I50.23 Acute on chronic systolic (congestive) heart failure; J96.01 Acute respiratory failure with hypoxia; C34.90 Malignant neoplasm of unspecified part of unspecified bronchus or lung; R64 Cachexia; J44.0 Chronic obstructive pulmonary disease with (acute) lower respiratory infection; E22.2 Syndrome of inappropriate secretion of antidiuretic hormone; C79.51 Secondary malignant neoplasm of bone; C79.70 Secondary malignant neoplasm of unspecified adrenal gland; C78.1 Secondary malignant neoplasm of mediastinum; J44.1 Chronic obstructive pulmonary disease with (acute) exacerbation; Z20.822 Contact with and (suspected) exposure to COVID-19; M54.9 Dorsalgia, unspecified; G89.29 Other chronic pain; E78.00 Pure hypercholesterolemia, unspecified; E11.9 Type 2 diabetes mellitus without complications; I11.0 Hypertensive heart disease with heart failure; E78.5 Hyperlipidemia, unspecified; F32.9 Major depressive disorder, single episode, unspecified; K21.9 Gastro-esophageal reflux disease without esophagitis; I25.10 Atherosclerotic heart disease of native coronary artery without angina pectoris; M10.9 Gout, unspecified; E87.6 Hypokalemia; K59.00 Constipation, unspecified; Z95.1 Presence of aortocoronary bypass graft; Z87.891 Personal history of nicotine dependence; Z79.899 Other long term (current) drug therapy; Z85.038 Personal history of other malignant neoplasm of large intestine; Z88.5 Allergy status to narcotic agent; Z68.20 Body mass index [BMI] 20.0-20.9, adult; Z90.49 Acquired absence of other specified parts of digestive tract; Z95.810 Presence of automatic (implantable) cardiac defibrillator
CPT/HCPCS: 0240U; 36415; 36416; 71275; 80048; 80053; 82248; 82550; 83605; 83615; 83690; 83735; 83880; 83930; 83935; 84100; 84133; 84145; 84300; 84443; 84484; 84550; 85007; 85025; 85027; 86140; 87040; 87070; 87077; 87186; 87205; 93005; 94640; 96365; 96367; 96375; 97139; J0360; J0692; J1100; J1650; J1815; J1940; J3370; J3475; J3490; J7611; J7620; J8540; Q0162; Q9967

== ENCOUNTER 2021-01-14 11:31 | Outpatient (CLI) | payer BC | END 2021-01-14 11:32 | disposition home or self-care (01) | LOC: PET 11:31 | PROVIDERS: ATTEND Internal Medicine Hematology & Oncology | DX: C34.90 Malignant neoplasm of unspecified part of unspecified bronchus or lung (principal) | CPT/HCPCS: 78815; A9552 ==

== ENCOUNTER 2021-04-22 12:05 | Outpatient (CLI) | payer BC | END 2021-04-22 12:06 | disposition home or self-care (01) | LOC: PET 12:05 | PROVIDERS: ATTEND Internal Medicine Hematology & Oncology | DX: C34.91 Malignant neoplasm of unspecified part of right bronchus or lung (principal); K80.20 Calculus of gallbladder without cholecystitis without obstruction | CPT/HCPCS: 78815; A9552 ==

== ENCOUNTER 2021-05-27 14:32 | Outpatient (CLI) | payer MEDICARE, OTHER | END 2021-05-27 14:33 | disposition home or self-care (01) | LOC: BICCT 14:32 | PROVIDERS: ATTEND Orthopaedic Surgery | DX: S72.141G Displaced intertrochanteric fracture of right femur, subsequent encounter for closed fracture with delayed healing (principal) ==

== ENCOUNTER 2021-09-02 12:30 | Outpatient (CLI) | payer MEDICARE, OTHER | END 2021-09-02 12:31 | disposition home or self-care (01) | LOC: PET 12:30 | PROVIDERS: ATTEND Internal Medicine Hematology & Oncology | DX: C34.90 Malignant neoplasm of unspecified part of unspecified bronchus or lung (principal); C79.51 Secondary malignant neoplasm of bone | CPT/HCPCS: 78815; A9552 ==

== ENCOUNTER 2021-09-09 11:41 | Outpatient (CLI) | payer MEDICARE, OTHER ==
[2021-09-09 12:25] LABS: Estimated GFR-MDRD - POC Greater than 90
== END 2021-09-09 11:42 | disposition home or self-care (01) ==
LOC: CT 11:41
PROVIDERS: ATTEND Internal Medicine Hematology & Oncology
DX: C34.90 Malignant neoplasm of unspecified part of unspecified bronchus or lung (principal); R93.89 Abnormal findings on diagnostic imaging of other specified body structures; G93.89 Other specified disorders of brain; Z95.810 Presence of automatic (implantable) cardiac defibrillator
CPT/HCPCS: 70470; 82565

== ENCOUNTER 2021-12-04 12:30 | Outpatient (CLI) | payer MEDICARE, OTHER | END 2021-12-04 12:31 | disposition home or self-care (01) | LOC: PET 12:30 | PROVIDERS: ATTEND Internal Medicine Hematology & Oncology | DX: Z51.11 Encounter for antineoplastic chemotherapy (principal); C34.90 Malignant neoplasm of unspecified part of unspecified bronchus or lung; C79.51 Secondary malignant neoplasm of bone | CPT/HCPCS: 78815; A9552 ==

== ENCOUNTER 2022-01-30 19:09 | Emergency (ER) | payer MEDICARE, OTHER ==
[2022-01-30 21:17] LABS: #Eosinphils 0.1 thou/uL (0.0-0.7); #Lymphocytes 0.9 thou/uL (1.20-3.40); #Monocytes 0.9 thou/uL (0.11-0.59); #Neutrophils 4.4 thou/uL (1.40-6.50); %Basophils 0.2 % (0.0-1.0); %Eosinophils 1.4 % (0.0-10.0); %Lymphocytes 14.1 % (21.0-51.0); %Monocytes 13.8 % (0.0-10.0); %Neutrophils 70.5 % (42.0-75.0); Hemoglobin 12.2 g/dL (12.0-16.0); Mean Corpuscular HGB CONC 33.5 g/dL (32.0-36.0); Mean Corpuscular Hemoglobin 34.3 pg (27.0-31.0); Mean Platelet Volume 7.1 fL (7.4-10.4); Platelet Count 215 thou/uL (130-400); RBC Distribution Width 13.4 % (11.5-14.5); Red Blood Cell (RBC) Count 3.56 mill/uL (4.20-5.40); White Blood Cell (WBC) Count 6.3 thou/uL (4.8-10.8)
[2022-01-30 21:55] LABS: ALT (SGPT) 23 U/L (8-55); AST (SGOT) 33 U/L (5-34); Albumin 2.7 g/dL (3.4-4.8); Alkaline Phosphatase 254 U/L (40-110); Anion Gap 11 mmol/L (10-20); BUN (Urea Nitrogen) 7 mg/dL (9.8-20.1); Calc. Creatinine Clearance 0 mL/min (70-130); Calcium 8.5 mg/dL (7.8-10.44); Carbon Dioxide 26 mmol/L (23-31); Chloride 88 mmol/L (98-107); Estimated GFR 100; Globulin 3.2 g/dL (2.4-3.5); Glucose 113 mg/dL (80-115); Potassium 4.2 mmol/L (3.5-5.1); Protein, Total 5.9 g/dL (5.8-8.1); Sodium 121 mmol/L (136-145)
== END 2022-01-30 23:37 | disposition home or self-care (01) ==
LOC: ERS 19:09
DX: R22.32 Localized swelling, mass and lump, left upper limb (principal); R79.89 Other specified abnormal findings of blood chemistry; I10 Essential (primary) hypertension; E78.00 Pure hypercholesterolemia, unspecified; E11.9 Type 2 diabetes mellitus without complications; F17.210 Nicotine dependence, cigarettes, uncomplicated
CPT/HCPCS: 80053; 85025; 85379